=== PATIENT | female | born 1990 | race Caucasian/White ===

== ENCOUNTER 2017-11-12 04:48 | Emergency (ER) | payer BC ==
[~2017-11-12] VITALS: Ht 170.2 cm; Wt 68.0 kg
[2017-11-12 04:53] VITALS: BP 157/82
[2017-11-12] MEDS ORDERED: LEVO25TA4 PO (05:01)
[2017-11-12] MEDS ORDERED: BUPR150T17 PO (05:01)
[2017-11-12] MEDS ORDERED: GABA300C10 PO (05:01)
[2017-11-12] MEDS ORDERED: DULO60CA7 PO (05:01)
[2017-11-12] MEDS ORDERED: NS 1000ML 1,000 ML ONE (05:08)
[2017-11-12] MEDS ORDERED: NS 1000ML 1,000 ML IV STA (05:09)
[2017-11-12] MEDS ORDERED: ZOFRAN ONE (05:09)
[2017-11-12] MEDS ORDERED: ZOFRAN IV STA ×2 (05:09→05:24)
[2017-11-12] MEDS ORDERED: DILAUDID IV STA (05:17)
--- NOTE | 2017-11-12 05:17 | ER.PDOC ---
General Chief Complaint: Nausea,Vomiting,Diarrhea Stated Complaint: VOMITING Time seen by MD: 05:11 Source: patient Exam Limitations: no limitations History of Present Illness Initial Comments Upper abdominal pain, Nausea and vomiting. Problem is on going and chronic. Has been worked up including EGD by GI Doctor with no significant finding. Timing/Duration: 4-6 hours Severity/Quality: moderate, sharpness Radiation: no radiation Associated Symptoms: nausea/vomiting Exacerbated by: nothing Relieved By: nothing Allergies: Coded Allergies: metronidazole (Verified Allergy, Unknown, 11/19/16) Home Meds Reported Medications Levothyroxine Sodium (LEVOTHYROXINE SODIUM) 25 Mcg Tablet, 1 TAB PO DAILY, #30 TAB 5 Refills 11/12/17 Duloxetine Hcl (CYMBALTA) 60 Mg Capsule.dr, 1 CAP PO DAILY, #90 CAP 3 Refills 11/12/17 Bupropion Hcl (WELLBUTRIN XL) 150 Mg Tab.er.24h, 1 TAB PO DAILY, #30 TAB 11/12/17 Gabapentin (GABAPENTIN) 300 Mg Capsule, 1 CAP PO TID, #90 CAP 5 Refills 11/12/17 Vital Signs First Vital Signs Date Time Temp Pulse Resp B/P (MAP) Pulse Ox O2 Delivery O2 Flow Rate FiO2 11/12/17 04:53 50 16 99 11/12/17 04:53 97.5 157/82 (107) Room Air Last Vital Signs Date Time Temp Pulse Resp B/P (MAP) Pulse Ox O2 Delivery O2 Flow Rate FiO2 11/12/17 04:53 97.5 57 16 157/82 (107) 100 Room Air Past Medical History Medical History: fibromyalgia, thyroid disease Surgical History: appendectomy LMP (females 10-50): this week Social History Smoking: non-smoker Alcohol Use: occassionally Drug Use: marijuana Constitutional: no symptoms reported EENTM: no symptoms reported Respiratory: no symptoms reported Cardiovascular: no symptoms reported Gastrointestinal: see HPI Genitourinary: no symptoms reported All Other Systems: Reviewed and Negative Physical Exam General Appearance: No Apparent Distress, WD/WN HEENT: PERRL/EOMI, Normal ENT Inspection, TMs Normal, Pharynx Normal Neck: Non-Tender, Full Range of Motion, Supple, Normal Inspection Respiratory: chest non-tender, lungs clear, normal breath sounds, no respiratory distress, no accessory muscle use Cardiovascular: Normal Peripheral Pulses, Regular Rate, Rhythm, No Edema, No Gallop, No JVD, No Murmur 1 - tenderness Gastrointestinal: Normal Bowel Sounds, No Organomegaly, No Pulsatile Mass, Guarding, Tenderness (upper abdomen) Back: Normal Inspection, No CVA Tenderness, No Vertebral Tenderness Extremities: Normal Range of Motion, Non-Tender, Normal Inspection, No Pedal Edema, No Calf Tenderness, Normal Capillary Refill, Pelvis Stable Neurologic/Psychiatric: 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 Feels better with Zofran. EKG/XRAY/CT/US CT Comments: See full report of CT abdomen/pelvis Course Blood Pressure Systolic: 157 Blood Pressure Diastolic: 82 Blood Pressure Mean: 107 Departure Time of Disposition: 06:37 Disposition: 01 HOME, SELF-CARE Impression: Primary Impression: Nausea & vomiting Additional Impressions: Chronic abdominal pain Constipation Condition: Improved Referrals: Burton ALVARADO (PCP) PRIMARY CARE PROVIDER Additional Instructions: Zofran ODT Start feeding with clear liquids and advance diet as tolerated Magnesium Citrate OTC as directed F/U with your PCP in 2-3 days Duration or Time Spent with Pa: 90 mins Problem Qualifiers Primary Impression: Nausea & vomiting Vomiting type: unspecified Vomiting Intractability: intractable Qualified Codes: R11.2 - Nausea with vomiting, unspecified Additional Impressions: Constipation Constipation type: unspecified constipation type Qualified Codes: K59.00 - Constipation, unspecified SEBASTIAN SNYDER MD Nov 12, 2017 05:17
[2017-11-12] MEDS ORDERED: ZOFRAN ODT ONE ×2 (05:24→06:53)
[2017-11-12] MEDS ORDERED: ZOFRAN ODT SL STA (05:28)
[2017-11-12] MEDS ORDERED: ZOFRAN IM STA (05:34)
[2017-11-12] MEDS ORDERED: DILAUDID IM STA (05:34)
[2017-11-12] MEDS ORDERED: DILAUDID ONE (05:34)
--- NOTE | 2017-11-12 05:35 | NUR ---
iv attempt Iv attempted x 4 without success , EDP notified , new orders received
[2017-11-12 05:42] LABS: BASOPHIL % 0.3 % (0.0-0.2); EOSINOPHIL # 0.2 10^3/uL (0.0-0.2); EOSINOPHIL % 2.2 % (0.0-5.0); HEMOGLOBIN 13.3 g/dL (12.0-15.0); LYMPHOCYTES # 2.8 10^3/uL (1.0-4.8); LYMPHOCYTES % 25.8 % (24.0-44.0); MEAN CELL HGB 29.6 pg (26-34); MEAN CELL HGB CONCENTRATION 33.2 g/dL (33-37); MEAN CORP VOLUME 89.3 fL (78-100); MEAN PLATELET VOLUME 10.8 fL (7.8-11.0); MONOCYTES # 0.7 10^3/uL (0.3-0.8); MONOCYTES % 6.4 % (5.0-12.0); NEUTROPHILS % 65.2 % (41.0-85.0); RED CELL DISTRIBUTION WIDTH 13.3 % (11.5-14.5); WHITE BLOOD CELL 10.7 10^3/uL (4.5-11.0)
--- NOTE | 2017-11-12 05:50 | NUR ---
CT PATIENT TO CT
[2017-11-12 05:59] LABS: CALCIUM 9.1 mg/dL (8.4-10.5); CARBON DIOXIDE 22.4 mmol/L (20.0-32)
[2017-11-12 06:00] VITALS: BP 142/80
--- NOTE | 2017-11-12 06:00 | NUR ---
RETURN TO ROOM PATIENT RETURNED TO ROOM FROM CT
--- NOTE | 2017-11-12 06:08 | DIREP ---
PROCEDURE:CT ABDOMEN/PELVIS W/O CONTRAST COMPARISON:[facility], CT, CT ABD/PELVIS W/ CONTRAST, 12/13/2016, 11:34 AM. INDICATIONS:upper abdominal pain TECHNIQUE:Axial images were created through the abdomen and pelvis without intravenous contrast material. No oral contrast was administered. Sagittal and coronal reconstructions were performed from source images. The study was reviewed on abdominal, lung, liver and bone windows. FINDINGS: LUNG BASES:Normal. No visible pulmonary or pleural disease. LIVER:Normal. No significant liver lesions are identified. BILIARY:Normal. No visible dilatation or calcification. No calcified gallstones are seen. PANCREAS:Normal. No lesion, fluid collection, ductal dilatation, or atrophy. SPLEEN:Normal. No enlargement or focal lesion. ADRENALS:Normal. No mass or enlargement. URINARY TRACT:A small 3 mm inferior pole right renal stone noted. No hydronephrosis. The stone is best identified on image number 52, series 2. AORTA/VASCULAR:Normal. No aneurysm. RETROPERITONEUM:Normal. No mass or adenopathy. BOWEL/MESENTERY:Normal. There is no intestinal obstruction, free fluid, free air or mesenteric inflammatory changes. Significant retained fecal material in the colon. The appendix is not visualized. The the appendix is presumed to be surgically absent. No free air or free fluid is seen. ABDOMINAL WALL:Normal. No mass or hernia. PELVIC ORGANS:Mild cystic enlargement of both the adnexa, which is worse since the last study. The the right adnexa measures 6 x 4 cm in size in the left adnexa measures 6 x 6.2 cm in size. A follow-up pelvic sonogram is recommended. Phleboliths in the pelvis. BONES:Normal for age. No bony lesion or acute fracture. OTHER:Negative. CONCLUSION:Worsening and cystic enlargement of both the adnexa, recommend a follow-up pelvic sonogram. A 3 mm right renal stone without hydronephrosis. Severe constipation. Suspect a previous appendectomy. No free air or free fluid is seen. Dictated by: Emmanuel Ferrer MD on 11/12/2017 at 06:03 AM
[2017-11-12 06:45] VITALS: BP 132/80
[2017-11-12 07:01] VITALS: BP 132/80
== END 2017-11-12 06:54 | disposition home or self-care (01) ==
LOC: ER 04:48
DX: K59.00 Constipation, unspecified (principal); R11.2 Nausea with vomiting, unspecified; F12.10 Cannabis abuse, uncomplicated; E07.9 Disorder of thyroid, unspecified; M79.7 Fibromyalgia; Z88.8 Allergy status to other drugs, medicaments and biological substances; Z79.899 Other long term (current) drug therapy
CPT/HCPCS: 36415; 74176; 80053; 83690; 84703; 85025; 96372 ×2; 99285; J1170; J2405; J7030; Q0162 ×2

== ENCOUNTER 2018-02-06 08:02 | Emergency (ER) | payer BC ==
[~2018-02-06] VITALS: Ht 170.2 cm; Wt 59.0 kg
[2018-02-06] VITALS (8 sets, daily range): BP systolic 107–135; BP diastolic 58–82
[~2018-02-06 08:02] MED LIST: BUPR150T17 PO; DULO60CA7 PO; GABA300C10 PO; LEVO25TA4 PO
--- NOTE | 2018-02-06 08:07 | NUR ---
ARRIVAL PT ARRIVED AMBULATORY TO ER 4 C/O RIGHT LOWER QUADRANT AND BACK PAIN. PT STATES HAS BILATERAL OVARIAN CYSTS, HAD ULTRASOUND LAST WEEK AND FOLLOW UP WITH DR VELAZQUEZ ON TUESDAY. EDP NOTIFIED OF PT ARRIVAL.
[2018-02-06] MEDS ORDERED: ZOFRAN IV STA ×2 (08:31→10:06)
[2018-02-06] MEDS ORDERED: TORADOL IV STA (08:31)
[2018-02-06] MEDS ORDERED: ZOFRAN ONE ×2 (08:38→10:15)
[2018-02-06] MEDS ORDERED: TORADOL ONE (08:38)
--- NOTE | 2018-02-06 08:39 | ER.PDOC ---
General Chief Complaint: Abdomen Pain Stated Complaint: LOWER ABDOMINAL PAIN Time seen by MD: 08:20 Source: patient Exam Limitations: no limitations History of Present Illness Initial Comments Pt started with RLQ abdominal pain, nausea and vomiting earlier this morning. Pt has a history of PCOS, but, pain appears different to previous occasions. Pain is located mainly on right paraumbilical area Timing/Duration: 1-3 hours Severity/Quality: moderate Radiation: RLQ, flank (right) Associated Symptoms: nausea/vomiting Exacerbated by: nothing Relieved By: nothing Allergies: Coded Allergies: hydrocodone (Verified Allergy, Unknown, Nausea, 02/06/18) metronidazole (Verified Allergy, Unknown, 11/19/16) Home Meds Reported Medications Levothyroxine Sodium (LEVOTHYROXINE SODIUM) 25 Mcg Tablet, 1 TAB PO DAILY, #30 TAB 5 Refills 11/12/17 Duloxetine Hcl (CYMBALTA) 60 Mg Capsule.dr, 1 CAP PO DAILY, #90 CAP 3 Refills 11/12/17 Bupropion Hcl (WELLBUTRIN XL) 150 Mg Tab.er.24h, 1 TAB PO DAILY, #30 TAB 11/12/17 Gabapentin (GABAPENTIN) 300 Mg Capsule, 1 CAP PO TID, #90 CAP 5 Refills 11/12/17 Vital Signs First Vital Signs Date Time Temp Pulse Resp B/P (MAP) Pulse Ox O2 Delivery O2 Flow Rate FiO2 02/06/18 08:16 98.4 75 17 98 Room Air 02/06/18 08:19 133/73 (93) Last Vital Signs Date Time Temp Pulse Resp B/P (MAP) Pulse Ox O2 Delivery O2 Flow Rate FiO2 02/06/18 08:19 98.4 75 17 133/73 (93) 98 Room Air Past Medical History Medical History: fibromyalgia, thyroid disease Surgical History: appendectomy, other LMP (females 10-50): last week Social History Alcohol Use: none Drug Use: marijuana Constitutional: no symptoms reported EENTM: no symptoms reported Respiratory: no symptoms reported Cardiovascular: no symptoms reported Gastrointestinal: see HPI, abdominal pain, nausea, poor appetite, vomiting Genitourinary: flank pain (right) Musculoskeletal: no symptoms reported Skin: no symptoms reported Psychiatric/Neurological: no symptoms reported Endocrine: no symptoms reported Hematologic/Lymphatic: no symptoms reported Physical Exam General Appearance: No Apparent Distress, WD/WN HEENT: PERRL/EOMI, Normal ENT Inspection, TMs Normal, Pharynx Normal Neck: Non-Tender, Full Range of Motion, Supple, Normal Inspection Respiratory: chest non-tender, lungs clear, normal breath sounds, no respiratory distress, no accessory muscle use Cardiovascular: Normal Peripheral Pulses, Regular Rate, Rhythm, No Edema, No Gallop, No JVD, No Murmur Gastrointestinal: Tenderness (right paraumbilical area and RLQ) Back: CVA Tenderness (R) Extremities: Normal Range of Motion, Non-Tender, Normal Inspection, No Pedal Edema, No Calf Tenderness, Normal Capillary Refill, Pelvis Stable Neurologic/Psychiatric: 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 as Tested, No Motor/Sensory Deficits, Alert, Normal Mood/Affect, Oriented x 3 Skin: Normal Color, Warm/Dry Lymphatic: No Adenopathy EKG/XRAY/CT/US CT Comments: right sided pyelonephritis Course TIME SEEN BY PROVIDER: 09:51 Duration or Total Time Spent w: 20 Vitals & review Data Vital Sign - Last 24 Hours 02/06/18 02/06/18 08:16 08:19 Temp 98.4 98.4 Pulse 75 75 Resp 17 17 B/P (MAP) 133/73 (93) Pulse Ox 98 98 O2 Delivery Room Air Room Air Departure Time of Disposition: 09:51 Disposition: 01 HOME, SELF-CARE Impression: Primary Impression: UTI (urinary tract infection) Additional Impression: Pyelonephritis Condition: Stable Patient Instructions: Pyelonephritis, Adult, [id number] Referrals: Burton ALVARADO (PCP) PRIMARY CARE PROVIDER Duration or Time Spent with Pa: 20 Problem Qualifiers LACI RICK MD February 06, 2018 08:39
[2018-02-06] MEDS ORDERED: NS 1000ML 1,000 ML ONE ×2 (08:41→10:15)
[2018-02-06 08:44] LABS: BILIRUBIN,URINE NEGATIVE (NEGATIVE); UROBILINOGEN,URINE NORMAL (NEGATIVE)
[2018-02-06 08:49] LABS: BASOPHIL % 0.4 % (0.0-0.2); EOSINOPHIL # 0.4 10^3/uL (0.0-0.2); HEMOGLOBIN 11.1 g/dL (12.0-15.0); LYMPHOCYTES # 2.6 10^3/uL (1.0-4.8); MEAN CELL HGB 31.6 pg (26-34); MEAN CELL HGB CONCENTRATION 32.9 g/dL (33-37); MEAN PLATELET VOLUME 10.9 fL (7.8-11.0); MONOCYTES % 9.7 % (5.0-12.0); NEUTROPHIL # 6.3 10^3/uL (1.8-7.7); NEUTROPHILS % 60.7 % (41.0-85.0); RED CELL DISTRIBUTION WIDTH 14.5 % (11.5-14.5); WHITE BLOOD CELL 10.4 10^3/uL (4.5-11.0)
--- NOTE | 2018-02-06 08:52 | NUR ---
CT PT TAKEN CT
[2018-02-06 08:59] LABS: APPEARANCE,URINE SLIGHTLY CLOUDY (CLEAR); UA COLOR STRAW (YELLOW)
--- NOTE | 2018-02-06 08:59 | NUR ---
CT PT BACK FROM CT
[2018-02-06] MEDS ORDERED: NS 1000ML 1,000 ML IV ONE ×2 (09:00→10:00)
[2018-02-06 09:03] LABS: CALCIUM 8.5 mg/dL (8.4-10.5); CARBON DIOXIDE 25.3 mmol/L (20.0-32)
--- NOTE | 2018-02-06 09:13 | DIREP ---
PROCEDURE:CT ABDOMEN/PELVIS W/ CONTRAST COMPARISON:[facility], CT, CT ABD/PELVIS W/O, 11/12/2017, 05:46 AM. [facility], CT, CT ABD/PELVIS W/ CONTRAST, 12/13/2016, 11:34 AM. INDICATIONS:RLQ pain x 2 hrs, hx ovarian cysts TECHNIQUE:Axial images were created through the abdomen and pelvis with non-ionic intravenous contrast material. No oral contrast was administered. Sagittal and coronal reconstructions were performed from source images. FINDINGS: LUNG BASES:No suspicious airspace consolidation or pleural effusion. LIVER:No suspicious focal hepatic lesion. BILIARY:The gallbladder is nondistended. No radiopaque calculi. No significant intrahepatic or extrahepatic biliary ductal dilatation. PANCREAS:No suspicious pancreatic abnormality. SPLEEN:The spleen is not significantly enlarged. No focal splenic lesion identified. ADRENALS:The adrenal glands are unremarkable. URINARY TRACT:Subtle delayed right nephrogram. There is mild fullness of the right renal pelvis and right ureter with apparent subtle urothelial enhancement of the right ureter. Subtle right perinephric fat stranding with apparent perinephric fluid. No definite urinary calculi identified. Unremarkable left kidney. AORTA/VASCULAR:No aneurysmal dilatation. RETROPERITONEUM:No suspicious retroperitoneal lymphadenopathy. BOWEL/MESENTERY:No evidence for small bowel obstruction. Moderate fecal burden. The colon appears otherwise grossly unremarkable. Nonvisualization of the appendix which may be surgically absent as there are apparent postsurgical changes near the base of the cecum. No free air. ABDOMINAL WALL:No significant hernia. PELVIC ORGANS:Urinary bladder is nondistended, limiting evaluation. Mild perivesicular fat stranding. The uterus is not enlarged for the patient's age. There is an approximate 5.7 cm cyst within the left adnexal region which is fairly similar to the previous study. Apparent small cysts and/or prominent follicles within the right ovary. No significant free fluid within the pelvis. BONES:No acute abnormality. CONCLUSION: 1. Subtle delayed right nephrogram with mild right perinephric fluid and fat stranding. Fullness of the right renal pelvis and right ureter with apparent subtle urothelial enhancement. No definite urinary calculi identified. Findings are highly suspicious for right-sided pyelonephritis, particularly as there does appear to be perivesicular stranding about the urinary bladder, suggesting associated lower urinary tract infection. Please correlate with urinalysis. 2. Moderate fecal burden within the proximal colon. Suspect prior appendectomy. 3. Dominant left ovarian cyst with additional smaller cysts and/or prominent follicles within the right ovary. 4. Additional findings as above. Dictated by: Milan Carranza M.D. On 02/06/2018 at 09:02 AM
--- NOTE | 2018-02-06 09:40 | NUR ---
STATUS PT RESTING QUIETLY IN BED AT THIS TIME. AT BEDSIDE.
[2018-02-06] MEDS ORDERED: LEVAQUIN 150 ML IV ONE ×2 (10:00→10:15)
--- NOTE | 2018-02-06 10:17 | NUR ---
STATUS PT VOMITED AT THIS TIME. BASIN PROVIDED FOR PT. PT SITTING UPRIGHT IN BED.
[2018-02-06] MEDS ORDERED: PHENERGAN IV STA (10:55)
[2018-02-06] MEDS ORDERED: PHENERGAN ONE (10:57)
--- NOTE | 2018-02-06 11:05 | NUR ---
STATUS PT VOMITING AT THIS TIME. BASIN PROVIDED TO PATIENT. PT SITTING UP IN BED.
--- NOTE | 2018-02-06 11:20 | NUR ---
STATUS PT RESTING IN BED QUIETLY. AT BEDSIDE. NO NEEDS VOICED.
[2018-02-06] MEDS ORDERED: NUBAIN IV STA (12:37)
[2018-02-06] MEDS ORDERED: THORAZINE IM STA (12:37)
[2018-02-06] MEDS ORDERED: THORAZINE ONE (12:47)
[2018-02-06] MEDS ORDERED: DEMEROL ONE (12:50)
--- NOTE | 2018-02-06 12:57 | NUR ---
STATUS PT VOMITING AT THIS TIME. BASIN PROVIDED. PT SITTING UP IN BED. EDP NOTIFIED.
[2018-02-06] MEDS ORDERED: DEMEROL IV STA (13:01)
--- NOTE | 2018-02-06 13:24 | NUR ---
STATUS PT RESTING QUIETLY IN BED. NO NEEDS VOICED. AT BEDSIDE.
== END 2018-02-06 13:48 | disposition home or self-care (01) ==
LOC: ER 08:02
DX: N39.0 Urinary tract infection, site not specified (principal); N12 Tubulo-interstitial nephritis, not specified as acute or chronic; E07.9 Disorder of thyroid, unspecified; M79.7 Fibromyalgia; F12.10 Cannabis abuse, uncomplicated; Z87.42 Personal history of other diseases of the female genital tract; Z88.5 Allergy status to narcotic agent; Z90.49 Acquired absence of other specified parts of digestive tract
CPT/HCPCS: 36415; 74177; 80053; 81000; 81025; 82150; 83690; 85025; 85610; 85730; 87086; 99285; J1885; J1956; J2175; J2405 ×2; J2550; J3230; J7030 ×2; Q9965

== ENCOUNTER 2018-11-09 18:30 | Emergency (ER) | payer BC ==
[~2018-11-09] VITALS: Ht 170.2 cm; Wt 73.2 kg
[2018-11-09 18:34] VITALS: BP 134/86
--- NOTE | 2018-11-09 18:46 | ER.PDOC ---
General Chief Complaint: General Complaint Stated Complaint: COUGH,CONGESTION Time seen by MD: 19:00 Source: patient Exam Limitations: no limitations History of Present Illness Timing/Duration: yesterday Severity: mild Associated Symptoms: fever/chills, sore throat, hoarseness, cough, chest pain Prior symptoms/Treatment: Similar symptoms previous Allergies: Coded Allergies: hydrocodone (Verified Allergy, Unknown, Nausea, 02/06/18) metronidazole (Verified Allergy, Unknown, 11/19/16) Home Meds Reported Medications Fluoxetine Hcl (PROZAC) 20 Mg Capsule, 1 CAP PO DAILY, #30 CAP 1 Refill 11/09/18 Methylphenidate Hcl (RITALIN) 5 Mg Tablet, 1 TAB PO BID, #60 TAB 11/09/18 Clonazepam (KLONOPIN) 0.5 Mg Tablet, 1 TAB PO TID, #90 TAB 11/09/18 Gabapentin (GABAPENTIN) 300 Mg Capsule, 1 CAP PO TID, #90 CAP 5 Refills 11/12/17 Discontinued Reported Medications Levothyroxine Sodium (LEVOTHYROXINE SODIUM) 25 Mcg Tablet, 1 TAB PO DAILY, #30 TAB 5 Refills 11/12/17 Duloxetine Hcl (CYMBALTA) 60 Mg Capsule.dr, 1 CAP PO DAILY, #90 CAP 3 Refills 11/12/17 Bupropion Hcl (WELLBUTRIN XL) 150 Mg Tab.er.24h, 1 TAB PO DAILY, #30 TAB 11/12/17 Constitutional: no symptoms reported EENTM: no symptoms reported All Other Systems: Reviewed and Negative Past Medical History Medical History: fibromyalgia, thyroid disease Surgical History: appendectomy, other LMP (females 10-50): 3 weeks Family History Significant Family History: no pertinent family hx Social History Smoking: non-smoker, other Alcohol Use: none Drug Use: none Reviewed Nursing Reviewed: Vital Signs, Abn. Noted Physical Exam General Appearance: alert, no distress Eye: eyes nml inspection, lids & conjunct. nml, PERRL, no nystagmus Ear: ear nml Nose: rhinorrhea Throat: pharynx nml, airway nml Neck: nml inspection, supple Respiratory: no resp.distress, breath sounds nml Abdomen: non-tender, no organomegaly CVS: reg rate & rhythm, heart sounds nml Skin: color nml, no rash, warm/dry Extremities: non-tender, nml ROM, no pedal edema NEURO/PSYCH: oriented x 3, CN's nml as tested, motor nml, sensation nml, mood/ affect nml Results/Orders Results/Orders Laboratory Tests Test 11/09/18 19:10 Urine Collection Type CCMS Urine Color YELLOW (YELLOW) Urine Appearance CLOUDY (CLEAR) Urine Bilirubin NEGATIVE MG/DL (NEGATIVE) Urine Ketones NEGATIVE (NEGATIVE) Urine Specific [place] 1.015 (1.005-1.035) Urine pH 6 (5.0-6.0) Urine Protein NEGATIVE (NEGATIVE) Urine Urobilinogen NORMAL (NEGATIVE) Urine Nitrate POSITIVE (NEGATIVE) Urine Leukocyte Esterase 25 /uL TRACE (NEGATIVE) Urine Blood NEGATIVE (NEGATIVE) Urine RBC 0-2 RBC/HPF (NONE SEEN) Urine WBC 5-10 WBC/HPF (0-2) Urine Squamous Epithelial Cells RARE #/HPF (FEW) Urine Bacteria MANY (NONE SEEN) Urine Glucose NORMAL (NEGATIVE) Influenza Type A Antigen NEGATIVE (NEG) Influenza B Immunofluorescence NEGATIVE (NEG) Group A Streptococcus Screen NEGATIVE (NEGATIVE) Progress Progress DR GARCIA Departure Time of Disposition: 18:55 Disposition: 01 HOME, SELF-CARE Impression: Primary Impression: UTI (urinary tract infection) Additional Impressions: URI (upper respiratory infection) Bronchitis Condition: Stable Referrals: Burton ALVARADO (PCP) PRIMARY CARE PROVIDER Duration or Time Spent with Pa: 10 Problem Qualifiers ADIS METCALF MD Nov 09, 2018 18:46 MARTHA GARCIA MD Nov 09, 2018 19:46
[2018-11-09] MEDS ORDERED: METH5TAB4 PO (18:49)
[2018-11-09] MEDS ORDERED: FLUO20CA19 PO (18:49)
[2018-11-09] MEDS ORDERED: CLON0.5T PO (18:49)
[2018-11-09 19:20] LABS: BILIRUBIN,URINE NEGATIVE (NEGATIVE); UROBILINOGEN,URINE NORMAL (NEGATIVE)
[2018-11-09 19:24] LABS: STREP SCREEN NEGATIVE (NEGATIVE)
[2018-11-09 19:30] VITALS: BP 118/72
[2018-11-09 19:36] LABS: APPEARANCE,URINE CLOUDY (CLEAR); UA COLOR YELLOW (YELLOW)
[2018-11-09 19:58] VITALS: BP 118/72
== END 2018-11-09 19:56 | disposition home or self-care (01) ==
LOC: ER 18:30
DX: N39.0 Urinary tract infection, site not specified (principal); J06.9 Acute upper respiratory infection, unspecified; J40 Bronchitis, not specified as acute or chronic; E07.9 Disorder of thyroid, unspecified; M79.7 Fibromyalgia; Z79.899 Other long term (current) drug therapy; Z88.1 Allergy status to other antibiotic agents; Z88.5 Allergy status to narcotic agent
CPT/HCPCS: 81000; 87070; 87077; 87086; 87186; 87804; 87880; 99285

== ENCOUNTER 2020-10-10 20:40 | Emergency (ER) | payer BC, OTHER ==
[~2020-10-10] VITALS: Ht 170.2 cm; Wt 68.0 kg
[~2020-10-10 20:40] MED LIST changes: +CLON0.5T PO; +FLUO20CA19 PO; +METH5TAB4 PO
[2020-10-10 20:56] VITALS: BP 139/89
[2020-10-10 21:44] LABS: APPEARANCE,URINE CLOUDY (CLEAR); BILIRUBIN,URINE NEGATIVE (NEGATIVE); UA COLOR YELLOW (YELLOW); UROBILINOGEN,URINE 0.2 (NEGATIVE)
[2020-10-10 21:46] VITALS: BP 121/68
--- NOTE | 2020-10-10 21:46 | ER.PDOC ---
General Chief Complaint: Abdomen Pain Stated Complaint: ABD PAIN Time seen by MD: 21:38 Source: patient Exam Limitations: no limitations History of Present Illness Initial Comments Left pelvic pain today, patient old me that she is 9 weeks . She did a home test. No vaginal bleeding. Severity/Quality: moderate Location of Pain: abdominal pain LMP (females 10-50): : 1 Para: 0 Test: home Care: none Sexual [place] History: single partner Associated Symptoms: abdominal pain Allergies: Coded Allergies: hydrocodone (Verified Allergy, Unknown, Nausea, 02/06/18) metronidazole (Verified Allergy, Unknown, 11/19/16) Home Meds Reported Medications Fluoxetine Hcl (PROZAC) 20 Mg Capsule, 1 CAP PO DAILY, #30 CAP 1 Refill 11/09/18 Methylphenidate Hcl (RITALIN) 5 Mg Tablet, 1 TAB PO BID, #60 TAB 11/09/18 Clonazepam (KLONOPIN) 0.5 Mg Tablet, 1 TAB PO TID, #90 TAB 11/09/18 Gabapentin (GABAPENTIN) 300 Mg Capsule, 1 CAP PO TID, #90 CAP 5 Refills 11/12/17 Past Medical History Medical History: fibromyalgia, thyroid disease, other Surgical History: other Family History Significant Family History: no pertinent family hx Social History Alcohol Use: none Drug Use: none Review of Systems Constitutional: no symptoms reported EENTM: no symptoms reported Respiratory: no symptoms reported Cardiovascular: no symptoms reported Gastrointestinal: see HPI Genitourinary: see HPI Musculoskeletal: no symptoms reported All Other Systems: Reviewed and Negative Physical Exam General Appearance: No Apparent Distress, WD/WN Neck: nml inspection, non-tender Cardiovascular/Respiratory: Regular Rate, Rhythm, No M/R/G, Normal Peripheral Pulses, No JVD, Normal Breath Sounds, No Respiratory Distress 1 - tenderness Abdomen: Normal Bowel Sounds, Non Tender, No Organomegaly, No Pulsatile Mass, Tenderness (mild left lower abdominal/pelvis tenderness) Extremities: Normal Range of Motion, Non-Tender, Normal Inspection, No Pedal Edema, No Calf Tenderness, Normal Capillary Refill Neurologic/Psychiatric: 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 (10/10/20 21:44) Us Tv-Ob (10/10/20 21:44) Hcg, Quantitative (10/10/20 21:44) Us Preg Before 14 Wks (10/10/20 21:49) Vital Signs Date Time Temp Pulse Resp B/P (MAP) Pulse Ox O2 Delivery O2 Flow Rate FiO2 10/10/20 23:24 98.2 83 18 123/82 (96) 98 Room Air 10/10/20 21:46 98.2 81 18 121/68 (85) 98 Room Air 10/10/20 20:56 98.2 117 18 139/89 (106) 99 Room Air 10/10/20 20:56 98.2 117 18 10/10/20 20:56 98.2 117 18 99 Laboratory Tests Test 10/10/20 20:54 10/10/20 21:56 Urine Collection Type VOID Urine Color YELLOW (YELLOW) Urine Appearance CLOUDY (CLEAR) H Urine Bilirubin NEGATIVE MG/DL (NEGATIVE) Urine Ketones TRACE (NEGATIVE) Urine Specific [place] 1.020 (1.005-1.035) Urine pH 7.0 (5.0-6.0) Urine Protein NEGATIVE (NEGATIVE) Urine Urobilinogen 0.2 (NEGATIVE) Urine Nitrate NEGATIVE (NEGATIVE) Urine Leukocyte Esterase SMALL (NEGATIVE) Urine Blood NEGATIVE (NEGATIVE) Urine RBC NONE SEEN RBC/HPF (NONE Urine WBC 2-5 WBC/HPF (0-2) Urine Squamous Epithelial Cells FEW #/HPF (FEW) Urine Amorphous Sediment LARGE (NONE SEEN) Urine Bacteria FEW (NONE SEEN) H Urine Glucose NEGATIVE (NEGATIVE) Urine HCG, Qualitative POSITIVE (NEGATIVE) White Blood Count 10.2 10^3/uL (4.5-11.0) Red Blood Count 4.28 10^6/uL (4.00-5.20) Hemoglobin 13.1 g/dL (12.0-15.0) Hematocrit 37.3 % (36.0-46.0) Mean Corpuscular Volume 87.1 fL (78-100) Mean Corpuscular Hemoglobin 30.6 pg (26-34) Mean Corpuscular Hemoglobin Concent 35.1 g/dL (33-36.5) Red Cell Distribution Width 14.1 % (11.5-14.5) Platelet Count 210 10^3/uL (150-400) Mean Platelet Volume 9.3 fL (7.8-11.0) Neutrophils (%) (Auto) 71.1 % (41.0-85.0) Lymphocytes (%) (Auto) 20.0 % (24.0-44.0) L Monocytes (%) (Auto) 7.0 % (5.0-12.0) Neutrophils # (Auto) 7.2 10^3/uL (1.8-7.7) Lymphocytes # (Auto) 2.03 10^3/uL1 (1.0-4.8) Monocytes # (Auto) 0.7 10^3/uL (0.3-0.8) Absolute Immature Granulocyte (auto 0.02 10^3 u/L (0-2) Absolute Eosinophils (auto) 0.1 10^3/uL (0.0-0.2) Immature Granulocytes % 0.20 % (0.00-0.50) Eosinophils % 1.3 % (0.0-5.0) Basophils % 0.4 % (0.0-0.2) H Basophils # 0.0 10^3/uL (0.0-0.1) Prothrombin Time 9.9 SEC (9.3-11.3) Prothrombin Time INR (Non-Therap) 1.0 Activated Partial Thromboplast Time 23.5 SEC (24.67-30.72) Sodium Level 137 mmol/L (132-145) # Potassium Level 3.6 mmol/L (3.6-5.2) Chloride Level 101.0 mmol/L (96-109) Carbon Dioxide Level 25.7 mmol/L (20.0-32) Anion Gap 13.9 Blood Urea Nitrogen 11 mg/dL (7-18) Creatinine 0.84 mg/dL (0.59-1.40) Estimated GFR () 95.1 (>/=60) Est GFR (CKD-EPI)(Non-Afr Singaporean) 78.6 (>/=60) BUN/Creatinine Ratio 13.0 Glucose Level 96 mg/dL (70-110) Calcium Level 9.6 mg/dL (8.4-10.5) Total Bilirubin 0.3 mg/dL (0.2-1.0) Aspartate Amino Transferase (AST) 14 U/L (0-35) Alanine Aminotransferase (ALT) 15 U/L (12-78) Alkaline Phosphatase 51 U/L (50-136) Total Protein 6.9 g/dL (6.4-8.2) Albumin 3.5 g/dL (3.4-5.0) Globulin 3.4 Albumin/Globulin Ratio 1.029 Human Chorionic Gonadotropin, Quant [id number] mIU/mL Progress Progress OB US: Intrauterine gestation dating approximately 9 weeks 1 day by ultrasound criteria. Active heart tones. Patient told me that her pain resolved while she is here. She is currently pin free. ER DEPART Departure Time of Disposition: 23:32 Disposition: 01 HOME, SELF-CARE Impression: Primary Impression: Abdominal pain during in first trimester Additional Impression: UTI (urinary tract infection) Condition: Improved Referrals: PCP,UNKNOWN (PCP) PRIMARY CARE PROVIDER Additional Instructions: Macrobid F/U with your OB Provider in 2-3 days Return to ED if worsening or concerns Duration or Time Spent with Pa: 60 min Problem Qualifiers Additional Impression: UTI (urinary tract infection) Urinary tract infection type: site unspecified Hematuria presence: without hematuria Qualified Codes: N39.0 - Urinary tract infection, site not specified SEBASTIAN SNYDER MD Oct 10, 2020 21:46
--- NOTE | 2020-10-10 21:58 | NUR ---
US PT TO US WITH YANNI AT THIS TIME VIA WHEELCHAIR.
[2020-10-10 22:02] LABS: BASOPHIL % 0.4 % (0.0-0.2); EOSINOPHIL # 0.1 10^3/uL (0.0-0.2); EOSINOPHIL % 1.3 % (0.0-5.0); LYMPHOCYTES # 2.03 10^3/uL1 (1.0-4.8); MEAN CORP HGB 30.6 pg (26-34); MONOCYTES # 0.7 10^3/uL (0.3-0.8); NEUTROPHIL # 7.2 10^3/uL (1.8-7.7); NEUTROPHILS % 71.1 % (41.0-85.0); PLATELET COUNT 210 10^3/uL (150-400); RED CELL DISTRIBUTION WIDTH 14.1 % (11.5-14.5)
[2020-10-10 22:16] LABS: CALCIUM 9.6 mg/dL (8.4-10.5); CARBON DIOXIDE 25.7 mmol/L (20.0-32)
--- NOTE | 2020-10-10 23:07 | DIREP ---
PROCEDURE:US OB 1ST TRI - TV COMPARISON:None. INDICATIONS:LEFT PELVIC PAIN, Hx Ov Cyst, Hx PCOS,Cystectomy 2005, 2011,2013 TECHNIQUE:Transabdominal and endovaginal pelvic ultrasound images were obtained. Endovaginal images were obtained to optimally evaluate the and maternal adnexal structures. FINDINGS: GESTATIONAL SAC:Present and normal appearing. POLE:<<Present and normal appearing. CRL = 2.4 cm, corresponding to an EGA of 9 weeks 1 day . YOLK SAC:<<Present.>> CARDIAC ACTIVITY:<<Present. 172 bpm.>> UTERUS:Normal. OVARIES:Normal in size, shape, and echogenicity. The right measures 4.7 x 2.3 x 3.2 cm. Incidentally noted likely corpus luteum The left measures 3.9 x 2.1 x 2.0 cm. There are no adnexal masses. CUL-DE-SAC:Normal. US SAI:May 14, 2021 OTHER:Survey of the placental anatomic structure and amniotic fluid could not be performed because of gestational age (<14 weeks). CONCLUSION: Intrauterine gestation dating approximately 9 weeks 1 day by ultrasound criteria. Active heart tones. Dictated by: Kapil Borjas DO on 10/10/2020 at 11:04 PM
[2020-10-10 23:24] VITALS: BP 123/82
== END 2020-10-10 23:40 | disposition home or self-care (01) ==
LOC: ER 20:40
DX: O23.41 Unspecified infection of urinary tract in pregnancy, first trimester (principal); O26.891 Other specified pregnancy related conditions, first trimester; O99.281 Endocrine, nutritional and metabolic diseases complicating pregnancy, first trimester; M79.7 Fibromyalgia; E07.9 Disorder of thyroid, unspecified; Z79.899 Other long term (current) drug therapy; Z88.1 Allergy status to other antibiotic agents; Z88.5 Allergy status to narcotic agent; Z3A.09 9 weeks gestation of pregnancy
CPT/HCPCS: 36415; 76801; 76817; 80053; 81000; 81025; 84702; 85025; 85610; 85730; 87086; 99284

== ENCOUNTER 2020-10-23 10:10 | Observation (INO) | payer MEDICAID, OTHER ==
[~2020-10-23] VITALS: Ht 170.2 cm; Wt 68.0 kg
[2020-10-23] MEDS ORDERED: ZOFRAN ONE ×3 (10:44→21:49)
[2020-10-23] MEDS ORDERED: NS 1000ML 1,000 ML ONE ×2 (10:44→13:56)
[2020-10-23 10:50] VITALS: BP 109/80
[2020-10-23] MEDS ORDERED: NS 1000ML 1,000 ML IV STA ×3 (10:52→11:52)
[2020-10-23 10:54] VITALS: BP 109/80
[2020-10-23] MEDS ORDERED: ZOFRAN IV STA ×2 (10:54→11:26)
[2020-10-23] MEDS ORDERED: PHENERGAN IV STA (10:54)
--- NOTE | 2020-10-23 10:54 | NUR ---
ARRIVAL PATIENT ARRIVED TO [facility] AMBULATORY, C/O OF NAUSEA AND VOMITING FOR THE PAST THREE DAYS, PATIENT IS APPROX 10 WEEKS AND HAS NOT BEEN ABLE TO HOLD ANYTHING DOWN, NO CARE YET, CAME TO THE ED FOR EVAL, DOCTOR MAGAÑA TO THE ROOM TO SEE PATIENT.
--- NOTE | 2020-10-23 10:57 | ER.PDOC ---
General Chief Complaint: Requesting Medical Care Stated Complaint: NAUSEA/VOMITING Time seen by MD: 10:50 Source: patient Exam Limitations: no limitations History of Present Illness Initial Comments pt c/o unable to hold anything down x 3 days with palpitations this morning; she is 11 wk Severity/Quality: severe (vomiting, no c/o pain) Associated Symptoms (vomiting): freq vomitng Prior symptoms/Treatment: Similar symptoms previous Allergies: Coded Allergies: hydrocodone (Verified Allergy, Unknown, Nausea, 02/06/18) metronidazole (Verified Allergy, Unknown, 11/19/16) Home Meds Reported Medications Fluoxetine Hcl (PROZAC) 20 Mg Capsule, 1 CAP PO DAILY, #30 CAP 1 Refill 11/09/18 Methylphenidate Hcl (RITALIN) 5 Mg Tablet, 1 TAB PO BID, #60 TAB 11/09/18 Clonazepam (KLONOPIN) 0.5 Mg Tablet, 1 TAB PO TID, #90 TAB 11/09/18 Gabapentin (GABAPENTIN) 300 Mg Capsule, 1 CAP PO TID, #90 CAP 5 Refills 11/12/17 Vital Signs First Vital Signs Date Time Temp Pulse Resp B/P (MAP) Pulse Ox O2 Delivery O2 Flow Rate FiO2 10/23/20 10:50 98.4 58 16 10/23/20 10:50 99 10/23/20 10:50 109/80 (90) Room Air Last Vital Signs Date Time Temp Pulse Resp B/P (MAP) Pulse Ox O2 Delivery O2 Flow Rate FiO2 10/23/20 12:06 98.4 114 16 125/61 (82) 99 Room Air Past Medical History Medical History: fibromyalgia, thyroid disease, other Surgical History: other LMP (females 10-50): (LMP 11; ) Family History Significant Family History: no pertinent family hx Social History Smoking: non-smoker Alcohol Use: none Drug Use: none Constitutional: denies no symptoms reported, denies see HPI, denies chills, denies diaphoresis, denies fever, denies malaise, denies weakness, denies other EENTM: denies no symptoms reported, denies see HPI, denies eye pain, denies blurred vision, denies tearing, denies double vision, denies ear pain, denies ear discharge, denies nose pain, denies nose congestion, denies throat pain, denies throat swelling, denies mouth pain, denies mouth swelling, denies other Respiratory: denies no symptoms reported, denies see HPI, denies cough, denies orthopnea, denies shortness of breath, denies SOB with exertion, denies SOB at rest, denies stridor, denies wheezing, denies other Cardiovascular: denies no symptoms reported, denies see HPI, denies chest pain, denies edema, denies irregular heart rate, denies lightheadedness; palpitations (onset this morning); denies syncope, denies other Gastrointestinal: nausea, vomiting Genitourinary: denies no symptoms reported, denies see HPI, denies burning, denies dysuria, denies discharge, denies frequency, denies flank pain, denies hematuria, denies incontinence, denies pain, denies urgency, denies other Musculoskeletal: denies no symptoms reported, denies see HPI, denies back pain, denies gout, denies joint pain, denies joint swelling, denies muscle pain, denies muscle stiffness, denies neck pain, denies other Skin: denies no symptoms reported, denies see HPI, denies change in color, denies change in hair/nails, denies dryness, denies lesions, denies lumps, denies rash, denies other Psychiatric/Neurological: denies no symptoms reported, denies see HPI, denies anxiety, denies depressed, denies emotional problems, denies headache, denies numbness, denies paresthesia, denies pre-existing deficit, denies seizure, denies tingling, denies tremors, denies weakness, denies other All Other Systems: Reviewed and Negative Physical Exam General Appearance: No Apparent Distress, Thin HEENT: PERRL/EOMI, Normal ENT Inspection, TMs Normal, Pharynx Normal Neck: Non-Tender, Full Range of Motion, Supple, Normal Inspection Respiratory: lungs clear, normal breath sounds, no respiratory distress, no accessory muscle use Cardiovascular: Regular Rate, Rhythm, No Murmur Gastrointestinal: Normal Bowel Sounds, Non Tender Extremities: Non-Tender, Normal Inspection, No Pedal Edema, No Calf Tenderness Neurologic/Psychiatric: Alert, Normal Mood/Affect, Oriented x 3 Skin: Normal Color, Warm/Dry Results/Orders Results/Orders Orders - MAGAÑA,HUBER O DO 0.9 % Sodium Chloride (Ns 1000ml) (10/23/20 10:44) Ondansetron Hcl/Pf (Zofran) (10/23/20 10:44) Cbc With Auto Diff (10/23/20 10:52) Comprehensive Metabolic Panel (10/23/20 10:52) Amylase (10/23/20 10:52) Lipase (10/23/20 10:52) PT (10/23/20 10:52) Partial Thromboplastin Time. (10/23/20 10:52) Urinalysis (10/23/20 10:52) Saline Lock (10/23/20 10:52) 0.9 % Sodium Chloride (Ns 1000ml) (10/23/20 10:52) Ondansetron Hcl/Pf (Zofran) (10/23/20 10:54) 0.9 % Sodium Chloride (Ns 1000ml) (10/23/20 10:54) Ondansetron Hcl/Pf (Zofran) (10/23/20 11:26) Urine Culture (10/23/20 10:30) Ceftriaxone Sodium (Rocephin) (10/23/20 11:43) Ceftriaxone Sodium (Rocephin) (10/23/20 11:45) Prochlorperazine Edisylate (Compazine) (10/23/20 11:52) Diphenhydramine Hcl (Benadryl) (10/23/20 11:52) 0.9 % Sodium Chloride (Ns 1000ml) (10/23/20 11:52) Diphenhydramine Hcl (Benadryl) (10/23/20 11:53) Prochlorperazine Edisylate (Compazine) (10/23/20 11:54) Gastric Occ Bld (Gastrocult) (10/23/20 12:06) Admit Orders (10/23/20 12:14) Vital Signs Date Time Temp Pulse Resp B/P (MAP) Pulse Ox O2 Delivery O2 Flow Rate FiO2 10/23/20 12:06 98.4 114 16 125/61 (82) 99 Room Air 10/23/20 10:54 98.4 58 16 109/80 (90) 99 Room Air 10/23/20 10:50 98.4 58 16 109/80 (90) 99 Room Air 10/23/20 10:50 98.4 58 16 99 10/23/20 10:50 98.4 58 16 Administered Medications Medications (Trade) Dose Ordered Sig/Bakari Route PRN Reason Start Time Stop Time Status Last Admin Dose Admin Ceftriaxone Sodium 1000 mg/ Sodium Chloride 100 ml @ 100 mls/hr STAT STAT IV 10/23/20 11:43 10/23/20 12:42 DC 10/23/20 11:47 100 MLS/HR Diphenhydramine HCl (Benadryl) 50 mg STAT STAT IV 10/23/20 11:52 10/23/20 11:54 DC 10/23/20 12:05 50 MG Ondansetron HCl (Zofran) 4 mg STAT STAT IV 10/23/20 10:54 10/23/20 13:21 DC 10/23/20 10:56 4 MG Ondansetron HCl (Zofran) 4 mg STAT STAT IV 10/23/20 11:26 10/23/20 11:27 DC 10/23/20 11:29 4 MG Prochlorperazine Edisylate (Compazine) 10 mg STAT STAT IV 10/23/20 11:52 10/23/20 11:54 DC 10/23/20 12:04 10 MG Sodium Chloride 1,000 ml @ 1,200 mls/hr Q50M STAT IV 10/23/20 10:52 10/23/20 13:20 DC 10/23/20 10:56 1,200 MLS/HR Sodium Chloride 1,000 ml @ 1,200 mls/hr Q50M STAT IV 10/23/20 10:54 10/23/20 13:21 DC 10/23/20 12:04 1,200 MLS/HR Sodium Chloride 1,000 ml @ 1,200 mls/hr Q50M STAT IV 10/23/20 11:52 10/23/20 12:41 DC 10/23/20 12:06 1,200 MLS/HR Laboratory Tests Test 10/23/20 10:47 10/23/20 12:00 White Blood Count 15.6 10^3/uL (4.5-11.0) H Red Blood Count 4.58 10^6/uL (4.00-5.20) Hemoglobin 14.0 g/dL (12.0-15.0) Hematocrit 39.4 % (36.0-46.0) Mean Corpuscular Volume 86.0 fL (78-100) Mean Corpuscular Hemoglobin 30.6 pg (26-34) Mean Corpuscular Hemoglobin Concent 35.5 g/dL (33-36.5) Red Cell Distribution Width 13.8 % (11.5-14.5) Platelet Count 305 10^3/uL (150-400) Mean Platelet Volume 9.7 fL (7.8-11.0) Neutrophils (%) (Auto) 78.9 % (41.0-85.0) Lymphocytes (%) (Auto) 14.0 % (24.0-44.0) L Monocytes (%) (Auto) 6.7 % (5.0-12.0) Neutrophils # (Auto) 12.3 10^3/uL (1.8-7.7) H Lymphocytes # (Auto) 2.18 10^3/uL1 (1.0-4.8) Monocytes # (Auto) 1.0 10^3/uL (0.3-0.8) H Absolute Immature Granulocyte (auto 0.03 10^3 u/L (0-2) Absolute Eosinophils (auto) 0.0 10^3/uL (0.0-0.2) Immature Granulocytes % 0.20 % (0.00-0.50) Eosinophils % 0.1 % (0.0-5.0) Basophils % 0.1 % (0.0-0.2) Basophils # 0.0 10^3/uL (0.0-0.1) Prothrombin Time 10.7 SEC (9.3-11.3) Prothrombin Time INR (Non-Therap) 1.1 Activated Partial Thromboplast Time 24.7 SEC (24.67-30.72) Urine Collection Type UNKNOWN Urine Color YELLOW (YELLOW) Urine Appearance CLOUDY (CLEAR) H Urine Bilirubin SMALL MG/DL (NEGATIVE) Urine Ictotest NEGATIVE (NEGATIVE) Urine Ketones 40 mg/dL (NEGATIVE) Urine Specific [place] 1.025 (1.005-1.035) Urine pH 6.0 (5.0-6.0) Urine Protein 30 mg/dL (NEGATIVE) H Urine Urobilinogen NORMAL (NEGATIVE) Urine Nitrate NEGATIVE (NEGATIVE) Urine Leukocyte Esterase SMALL (NEGATIVE) Urine Blood NEGATIVE (NEGATIVE) Urine RBC 2-5 RBC/HPF (NONE SEEN) Urine WBC TNTC WBC/HPF (0-2) H Urine Squamous Epithelial Cells MANY #/HPF (FEW) Urine Renal Epithelial Cells RARE #/HPF (NONE SEEN) Urine Bacteria MANY (NONE SEEN) H Urine Fine Granular Casts Urine Coarse Granular Casts 2-5 #/LPF Urine Other CLUE CELLS #/HPF Urine Glucose NORMAL (NEGATIVE) Sodium Level 139 mmol/L (132-145) Potassium Level 2.9 mmol/L (3.6-5.2) L Chloride Level 99.0 mmol/L (96-109) Carbon Dioxide Level 23.9 mmol/L (20.0-32) Anion Gap 19.0 Blood Urea Nitrogen 13 mg/dL (7-18) Creatinine 0.99 mg/dL (0.59-1.40) Estimated GFR () 78.7 (>/=60) Est GFR (CKD-EPI)(Non-Afr Cameroonian) 65.0 (>/=60) BUN/Creatinine Ratio 13.0 Glucose Level 134 mg/dL (70-110) H Calcium Level 10.2 mg/dL (8.4-10.5) Total Bilirubin 0.6 mg/dL (0.2-1.0) Aspartate Amino Transferase (AST) 16 U/L (0-35) Alanine Aminotransferase (ALT) 24 U/L (12-78) Alkaline Phosphatase 59 U/L (50-136) Total Protein 7.9 g/dL (6.4-8.2) Albumin 4.0 g/dL (3.4-5.0) Globulin 3.9 Albumin/Globulin Ratio 1.025 Amylase Level 71 U/L (25-115) Lipase 85 U/L (114-286) L Gastric Fluid Occult Blood POSITIVE (NEGATIVE) Consult/PCP Time Consult/PCP Called: 12:13 Consult/PCP: Dr. Anahi Perez Reason/Comments: will admit ER DEPART Departure Time of Disposition: 12:14 Disposition: 01 HOME, SELF-CARE Impression: Primary Impression: Hyperemesis gravidarum Condition: Stable Referrals: PCP,UNKNOWN (PCP) PRIMARY CARE PROVIDER Duration or Time Spent with Pa: 30 min HUBER MAGAÑA DO Oct 23, 2020 10:57
[2020-10-23 11:10] LABS: BASOPHIL % 0.1 % (0.0-0.2); EOSINOPHIL % 0.1 % (0.0-5.0); LYMPHOCYTES # 2.18 10^3/uL1 (1.0-4.8); MEAN CORP HGB 30.6 pg (26-34); MONOCYTES % 6.7 % (5.0-12.0); NEUTROPHIL # 12.3 10^3/uL (1.8-7.7); NEUTROPHILS % 78.9 % (41.0-85.0); PLATELET COUNT 305 10^3/uL (150-400); RED CELL DISTRIBUTION WIDTH 13.8 % (11.5-14.5)
[2020-10-23 11:29] LABS: CALCIUM 10.2 mg/dL (8.4-10.5); CARBON DIOXIDE 23.9 mmol/L (20.0-32)
[2020-10-23 11:32] LABS: APPEARANCE,URINE CLOUDY (CLEAR); BILIRUBIN,URINE SMALL MG/DL (NEGATIVE); UA COLOR YELLOW (YELLOW)
[2020-10-23 11:34] LABS: UROBILINOGEN,URINE NORMAL (NEGATIVE)
[2020-10-23] MEDS ORDERED: ROCEPHIN 1,000 MG in NS 100ML 100 ML IV STA (11:43)
[2020-10-23] MEDS ORDERED: ROCEPHIN ONE (11:45)
[2020-10-23] MEDS ORDERED: COMPAZINE IV STA (11:52)
[2020-10-23] MEDS ORDERED: BENADRYL IV STA (11:52)
[2020-10-23] MEDS ORDERED: BENADRYL ONE (11:53)
[2020-10-23] MEDS ORDERED: COMPAZINE ONE (11:54)
[2020-10-23 12:06] VITALS: BP 125/61
--- NOTE | 2020-10-23 12:14 | NUR ---
SERGIO MAGAÑA ON THE PHONE WITH OBGYN DOCTOR SERGIO, WILL ADMIT PATIENT.
[2020-10-23 13:00] VITALS: BP 112/66
--- NOTE | 2020-10-23 13:15 | NUR ---
Rec'd from ER by wheelchair accompanied by Burton Victoria RN. Report rec'd. Pt states she is nauseated. Awake, alert, oriented.
--- NOTE | 2020-10-23 13:39 | PCM.HP ---
HISTORY & PHYSICAL HISTORY & PHYSICAL DATE OF ADMISSION: 10/23/20 CHIEF COMPLAINT: vomiting HISTORY OF PRESENT ILLNESS: 30 year old G1 with LMP of 08/05/21 (EDC 05/12/21) at 11 2/7 weeks who presents to [facility] ER with 4 days of intractable N/V (~30 x/days, streaks of blood). Normal BM 4 days ago. Tolerated apple sauce 4 days ago. No sick contacts. + anxiety (? cause of her N/V or visa-versa). No dysuria, + strong-smelling/concentrated/dark urine, no cloudy urine. No current hunger/thirst. No VB, no F/C. Found out at 5 weeks. Morning sickness spells before this. PAST MEDICAL HISTORY: hypothyroidism, PCOS, endometriosis, fibromyalgia SURGICAL HISTORY: bilater ov cystectomy, appendectomy (not ruptured) CURRENT MEDICATIONS: Neurontin, Clonidine, Fluoxetine, Methylphenidate ALLERGIES: Flagyl (nausea - side effect), Hydrocodone (nausea - side effect) FAMILY HISTORY: no CA/HTN/DM/CVD SOCIAL HISTORY: no E/T/D, no STD Hx REVIEW OF SYSTEMS: CONST:No fever, fatigue, or weight changes. EYES: No recent vision problems. ENT: No congestion, ear pain, or sore throat. C/V: No chest pain, palpitations, or edema. RESP: No cough, congestion, wheezing or shortness of breath. GI: No constipation, or diarrhea. : No incontinence or dysuria. M/S: No joint pain or swelling. SKIN: No rash. NEURO: No headache, focal numbness or weakness, dizziness, or seizures. PSYCH: No depression. ENDO: No polyuria or polydipsia. HEME: No abnormal bruising or bleeding. LYMPH: No swollen glands. IMMUN: No itching or hives. PHYSICAL EXAM: VITALS: Vital Signs Date Time Temp Pulse Resp B/P (MAP) Pulse Ox O2 Delivery O2 Flow Rate FiO2 10/23/20 13:00 98.4 77 16 112/66 (81) 99 Room Air Allergies Coded Allergies hydrocodone (Verified Allergy, Unknown, Nausea, 02/06/18) metronidazole (Verified Allergy, Unknown, 11/19/16) Current Medications Medications (Trade) Dose Ordered Sig/Bakari Route Start Time Stop Time Status Last Admin Dose Admin Sodium Chloride 1,000 ml @ 1,200 mls/hr Q50M STAT IV 10/23/20 10:52 10/23/20 13:20 DC 10/23/20 10:56 1,200 MLS/HR Ondansetron HCl (Zofran) 4 mg STAT STAT IV 10/23/20 10:54 10/23/20 13:21 DC 10/23/20 10:56 4 MG Sodium Chloride 1,000 ml @ 1,200 mls/hr Q50M STAT IV 10/23/20 10:54 10/23/20 13:21 DC 10/23/20 12:04 1,200 MLS/HR Ondansetron HCl (Zofran) 4 mg STAT STAT IV 10/23/20 11:26 10/23/20 11:27 DC 10/23/20 11:29 4 MG Ceftriaxone Sodium 1000 mg/ Sodium Chloride 100 ml @ 100 mls/hr STAT STAT IV 10/23/20 11:43 10/23/20 12:42 DC 10/23/20 11:47 100 MLS/HR Prochlorperazine Edisylate (Compazine) 10 mg STAT STAT IV 10/23/20 11:52 10/23/20 11:54 DC 10/23/20 12:04 10 MG Diphenhydramine HCl (Benadryl) 50 mg STAT STAT IV 10/23/20 11:52 10/23/20 11:54 DC 10/23/20 12:05 50 MG Sodium Chloride 1,000 ml @ 1,200 mls/hr Q50M STAT IV 10/23/20 11:52 10/23/20 12:41 DC 10/23/20 12:06 1,200 MLS/HR GENERAL: right lateral decubitus in the position, slow speech, very tired, no respiratory distress, able to answer/respond appropriately HEAD: Normal with no signs of head trauma. ENT: Hearing grossly intact, normal oropharynx. NECK: Supple, no tenderness, no lymphadenopathy, no masses, no thyromegaly LUNGS: Clear breath sounds. Heart: Reg rate. ABD: Bowel sounds normal, soft, nontender, no masses, no organomegaly, LYMPH: No lymphadenopathy noted. : not done EXT: Intact x 4 SKIN: No rashes or lesions. NEURO: Alert and oriented x3. Normal affect. 10/10/20: TV U/S: UTERUS:Normal. OVARIES:Normal in size, shape, and echogenicity. The right measures 4.7 x 2.3 x 3.2 cm. Incidentally noted likely corpus luteum The left measures 3.9 x 2.1 x 2.0 cm. There are no adnexal masses. CUL-DE-SAC:Normal. US SAI:May 14, 2021 OTHER:Survey of the placental anatomic structure and amniotic fluid could not be performed because of gestational age (<14 weeks). CONCLUSION: Intrauterine gestation dating approximately 9 weeks 1 day by ultrasound criteria. Active heart tones. Laboratory Tests Test 10/23/20 10:47 10/23/20 12:00 White Blood Count 15.6 10^3/uL (4.5-11.0) Red Blood Count 4.58 10^6/uL (4.00-5.20) Hemoglobin 14.0 g/dL (12.0-15.0) Hematocrit 39.4 % (36.0-46.0) Mean Corpuscular Volume 86.0 fL (78-100) Mean Corpuscular Hemoglobin 30.6 pg (26-34) Mean Corpuscular Hemoglobin Concent 35.5 g/dL (33-36.5) Red Cell Distribution Width 13.8 % (11.5-14.5) Platelet Count 305 10^3/uL (150-400) Mean Platelet Volume 9.7 fL (7.8-11.0) Neutrophils (%) (Auto) 78.9 % (41.0-85.0) Lymphocytes (%) (Auto) 14.0 % (24.0-44.0) Monocytes (%) (Auto) 6.7 % (5.0-12.0) Neutrophils # (Auto) 12.3 10^3/uL (1.8-7.7) Lymphocytes # (Auto) 2.18 10^3/uL1 (1.0-4.8) Monocytes # (Auto) 1.0 10^3/uL (0.3-0.8) Absolute Immature Granulocyte (auto 0.03 10^3 u/L (0-2) Absolute Eosinophils (auto) 0.0 10^3/uL (0.0-0.2) Immature Granulocytes % 0.20 % (0.00-0.50) Eosinophils % 0.1 % (0.0-5.0) Basophils % 0.1 % (0.0-0.2) Basophils # 0.0 10^3/uL (0.0-0.1) Prothrombin Time 10.7 SEC (9.3-11.3) Prothrombin Time INR (Non-Therap) 1.1 Activated Partial Thromboplast Time 24.7 SEC (24.67-30.72) Urine Collection Type UNKNOWN Urine Color YELLOW (YELLOW) Urine Appearance CLOUDY (CLEAR) Urine Bilirubin SMALL MG/DL (NEGATIVE) Urine Ictotest NEGATIVE (NEGATIVE) Urine Ketones 40 mg/dL (NEGATIVE) Urine Specific [place] 1.025 (1.005-1.035) Urine pH 6.0 (5.0-6.0) Urine Protein 30 mg/dL (NEGATIVE) Urine Urobilinogen NORMAL (NEGATIVE) Urine Nitrate NEGATIVE (NEGATIVE) Urine Leukocyte Esterase SMALL (NEGATIVE) Urine Blood NEGATIVE (NEGATIVE) Urine RBC 2-5 RBC/HPF (NONE SEEN) Urine WBC TNTC WBC/HPF (0-2) Urine Squamous Epithelial Cells MANY #/HPF (FEW) Urine Renal Epithelial Cells RARE #/HPF (NONE SEEN) Urine Bacteria MANY (NONE SEEN) Urine Fine Granular Casts Urine Coarse Granular Casts 2-5 #/LPF Urine Other CLUE CELLS #/HPF Urine Glucose NORMAL (NEGATIVE) Sodium Level 139 mmol/L (132-145) Potassium Level 2.9 mmol/L (3.6-5.2) Chloride Level 99.0 mmol/L (96-109) Carbon Dioxide Level 23.9 mmol/L (20.0-32) Anion Gap 19.0 Blood Urea Nitrogen 13 mg/dL (7-18) Creatinine 0.99 mg/dL (0.59-1.40) Estimated GFR () 78.7 (>/=60) Est GFR (CKD-EPI)(Non-Afr Guyanese) 65.0 (>/=60) BUN/Creatinine Ratio 13.0 Glucose Level 134 mg/dL (70-110) Calcium Level 10.2 mg/dL (8.4-10.5) Total Bilirubin 0.6 mg/dL (0.2-1.0) Aspartate Amino Transf (AST/SGOT) 16 U/L (0-35) Alanine Aminotransferase (ALT/SGPT) 24 U/L (12-78) Alkaline Phosphatase 59 U/L (50-136) Total Protein 7.9 g/dL (6.4-8.2) Albumin 4.0 g/dL (3.4-5.0) Globulin 3.9 Albumin/Globulin Ratio 1.025 Amylase Level 71 U/L (25-115) Lipase 85 U/L (114-286) Gastric Fluid Occult Blood POSITIVE (NEGATIVE) ASSESSMENT: Hyperemesis gravidarum w/ hypokalemia, no evidence of bowel obstruction/pancreatitis/pyelonephritis/liver dysfunction, ? component of anxiety PLAN: Admit for 23 hour obs, IV hydration, anti-emetic, replete Potassium, consider anxiolytics. Discussed this plan with the patient. All questions answered. She verbalized good understanding. SHAMAR HILL MD Oct 23, 2020 13:39
[2020-10-23] MEDS: PEPCID IV SCH ×2 (13:52→20:37)
--- NOTE | 2020-10-23 13:52 | NUR ---
Dr Perez in to see patient and discuss plan of care. Pepcid 20 mg IVP given. Pt had a 100 cc watery emesis.
[2020-10-23] MEDS: ZOFRAN IV SCH ×2 (13:58→21:49)
[2020-10-23 14:00] VITALS: BP 125/76
[2020-10-23] MEDS ORDERED: D5LR 1000ML/KCL 40MEQ 1,000 ML IV ONE (14:00)
--- NOTE | 2020-10-23 14:00 | NUR ---
ZOfran 8 mg IVP given as instructed by physician at this time. Rationale, effects, and side-effects of pepcid and zofran explained to pt and she voiced understanding.
[2020-10-23] MEDS ORDERED: LACTATED RINGERS 1,000 ML ONE ×3 (14:04→16:43)
[2020-10-23] MEDS: LACTATED RINGERS IV SCH ×3 (14:05→16:53)
--- NOTE | 2020-10-23 14:05 | NUR ---
Pt had NS infusing when she arrived to floor in a #20 gauge IV in her left hand which is patent, intact, and free of s/s of infiltration or infection. Up 2000 cc LR @ 1020 cc/hr per physicians order.
[2020-10-23] MEDS: ATIVAN IV PRN ×2 (14:28→20:39)
--- NOTE | 2020-10-23 14:28 | NUR ---
Ativan 1 mg given IV push per physician order. Rationale, effects, and side-effects explained to pt and she voiced understanding.
--- NOTE | 2020-10-23 15:25 | NUR ---
Sleeping soundly on right lateral. Resps even and non-labored. SO @ bedside and reports pt has been sleeping since her ativan.
--- NOTE | 2020-10-23 16:53 | NUR ---
Up 1000 cc D5LR with 40 meq kcl @ 100 cc/hr on pump #2, along with LR @ 100 cc/hr on pump #1 per order. Pt sleeping soundly and wakes momentarily when nurse adjusts IV. Declines needs and goes back to sleep.
--- NOTE | 2020-10-23 17:45 | NUR ---
Sleeping; wakes easily when nurse enters room. Declines needs. Goes back to sleep.
[2020-10-23] MEDS ORDERED: PHENERGAN IV SCH (18:00)
[2020-10-23] MEDS: REGLAN IV SCH (18:14)
--- NOTE | 2020-10-23 18:15 | NUR ---
Pt sleeping soundly, wakes easily when nurse enters room. IV reglan given as scheduled. Pt denies pain or N/V. Asked pt if she needs to empty her bladder and she stated "no" and went back to sleep. PO hydration at bedside. IV pumps cleared.
[2020-10-23 20:21] VITALS: BP 104/58
--- NOTE | 2020-10-23 20:21 | NUR ---
Assessment Patient sleeping upon nurse entry, but woke easily when nurse made presence known. Assessment performed. Patient rated pain at a 7 on a scale of 0-10. Patient stated that she has gone to the bathroom since shift change. Patient states she still feels a "little nauseous, but not like before." Patient requested a little bit of "something hot. My throat is just really scratchy and I need something to soothe it." Nurse stated she would find something that would be suitable. Patient denies further needs.
[2020-10-23] MEDS ORDERED: ATIVAN ONE (20:29)
[2020-10-23] MEDS ORDERED: TYLENOL ONE (20:29)
[2020-10-23] MEDS ORDERED: PEPCID IV ONE (20:30)
[2020-10-23] MEDS: TYLENOL PO PRN (20:38)
--- NOTE | 2020-10-23 20:39 | NUR ---
Medications Pepsid given IV at 2036. Tylenol 650 mg (325 mg/tab x2 tabs) given at 2037. Ativan 1mg given IV per patient's request at 2038. 30 mL hot chicken broth brought to patient to soothe throat. Patient sipped slowly and said it started helping her throat. Patient educated on medications, purposes, and side effects. Patient verbalizes understanding, denies needs at this time.
--- NOTE | 2020-10-23 21:28 | NUR ---
Reassessment Patient sleeping, respirations even and unlabored, no signs of stress noted. Patient left undisturbed for uninterrupted rest.
--- NOTE | 2020-10-23 21:49 | NUR ---
Medication Zofran 8mg given IV per scheduled order. Patient educated on Zofran, medication, purpose, and side effects. Patient verbalizes understanding, denies needs at this time.
[2020-10-24] MEDS: REGLAN IV SCH ×4 (00:18→17:43)
--- NOTE | 2020-10-24 00:18 | NUR ---
Medication Patient educated on Reglan, medication, purpose, and side effects. Patient verbalizes understanding, denies questions. Reglan given IV per order. Patient denies needs at this time.
[2020-10-24 00:23] VITALS: BP 117/54
--- NOTE | 2020-10-24 00:23 | NUR ---
VS VS obtained. Patient sleeping upon nurse entry, but woke after nurse made presence known. Patient states she has "bad nausea." Patient denies needs at this time.
[2020-10-24] MEDS ORDERED: ATIVAN ONE ×4 (01:46→22:26)
[2020-10-24] MEDS: ATIVAN IV PRN ×4 (01:49→22:32)
--- NOTE | 2020-10-24 01:49 | NUR ---
Medication Patient requesting ativan at this time. Patient educated on ativan, medication, purpose, and side effects. Patient verbalizes understanding, denies needs at this time.
[2020-10-24] MEDS ORDERED: LACTATED RINGERS 1,000 ML ONE ×3 (02:49→12:50)
[2020-10-24] MEDS: LACTATED RINGERS IV SCH ×3 (02:53→13:11)
--- NOTE | 2020-10-24 02:53 | NUR ---
New IV bag New bag of LR hung, infusing at 100ml/hr per order. LR with K still infusing at 100ml/hr per order. Patient sleeping, respirations even and unlabored, no signs of stress noted. Patient left undisturbed for uninterrupted rest.
--- NOTE | 2020-10-24 03:14 | NUR ---
Infusion complete Infusion of LR with potassium completed. 852.6 mL cleared from pump. LR infusion rate increased to 200mL/hr per order. Patient sleeping, respirations even and unlabored, no signs of stress noted. Patient left undisturbed for uninterrupted rest.
--- NOTE | 2020-10-24 04:03 | NUR ---
Status Patient sleeping, respirations even and unlabored, no signs of stress noted. Patient left undisturbed for uninterrupted rest.
[2020-10-24] MEDS ORDERED: ZOFRAN ONE ×4 (05:52→22:25)
[2020-10-24] MEDS: ZOFRAN IV SCH ×3 (05:56→22:31)
[2020-10-24 06:00] VITALS: BP 110/56
--- NOTE | 2020-10-24 06:00 | NUR ---
VS and Medication Patient sleeping but woke easily when nurse made presence known. Respirations even and unlabored, no signs of stress noted. Reglan given IV per order at 0555, Zofran given IV per order at 0556. 100mL clear emesis noted in emesis basin. 400mL clear urine emptied from collection hat. Patient denies needs at this time.
--- NOTE | 2020-10-24 06:45 | NUR ---
Medication Patient requesting Ativan. States "I know I'm saying I need it a lot, but it's the only thing keeping me calm." Ativan given IV per order. Patient denies needs at this time
--- NOTE | 2020-10-24 06:49 | NUR ---
Report Report given to oncoming shift. Transfer of care at this time.
--- NOTE | 2020-10-24 07:40 | PRM.PN ---
PROGRESS NOTE S/O/A/P DATE: 10/24/20 S: No improvement in her N/V (per pt, vomited ~ 15 times since being on the floor). No bleeding, jose a little water. + void/flatus. No pain/VB. O: VS: [employer] Allergies Coded Allergies hydrocodone (Verified Allergy, Unknown, Nausea, 02/06/18) metronidazole (Verified Allergy, Unknown, 11/19/16) Current Medications Medications (Trade) Dose Ordered Sig/Bakari Route Start Time Stop Time Status Last Admin Dose Admin Sodium Chloride 1,000 ml @ 1,200 mls/hr Q50M STAT IV 10/23/20 10:52 10/23/20 13:20 DC 10/23/20 10:56 1,200 MLS/HR Ondansetron HCl (Zofran) 4 mg STAT STAT IV 10/23/20 10:54 10/23/20 13:21 DC 10/23/20 10:56 4 MG Sodium Chloride 1,000 ml @ 1,200 mls/hr Q50M STAT IV 10/23/20 10:54 10/23/20 13:21 DC 10/23/20 12:04 1,200 MLS/HR Ondansetron HCl (Zofran) 4 mg STAT STAT IV 10/23/20 11:26 10/23/20 11:27 DC 10/23/20 11:29 4 MG Ceftriaxone Sodium 1000 mg/ Sodium Chloride 100 ml @ 100 mls/hr STAT STAT IV 10/23/20 11:43 10/23/20 12:42 DC 10/23/20 11:47 100 MLS/HR Prochlorperazine Edisylate (Compazine) 10 mg STAT STAT IV 10/23/20 11:52 10/23/20 11:54 DC 10/23/20 12:04 10 MG Diphenhydramine HCl (Benadryl) 50 mg STAT STAT IV 10/23/20 11:52 10/23/20 11:54 DC 10/23/20 12:05 50 MG Sodium Chloride 1,000 ml @ 1,200 mls/hr Q50M STAT IV 10/23/20 11:52 10/23/20 12:41 DC 10/23/20 12:06 1,200 MLS/HR Acetaminophen (Tylenol) 650 mg Q4HR PRN PO 10/23/20 13:30 11/22/20 13:29 10/23/20 20:38 650 MG Famotidine (Pepcid) 20 mg BID IV 10/23/20 13:30 11/22/20 13:29 10/23/20 20:37 20 MG Ondansetron HCl (Zofran) 8 mg Q8HR IV 10/23/20 14:00 11/22/20 13:59 10/24/20 05:56 8 MG Metoclopramide HCl (Reglan) 10 mg Q6HR IV 10/23/20 18:00 11/22/20 17:59 10/24/20 05:55 10 MG Lorazepam (Ativan) 1 mg Q2 PRN IV 10/23/20 14:00 11/22/20 13:59 10/24/20 06:45 1 MG Potassium Cl/ Dextrose/Lact Ringer's 1,000 ml @ 100 mls/hr Q10H ONCE IV 10/23/20 14:00 10/23/20 23:59 DC 10/23/20 16:53 100 MLS/HR General: A&O x 4, no respiratory distress, comfortable, speaking/moving slowly Abdomen: soft, non-tender A: HD#2, HG - no improvement. P: Currently on Zofran and Reglan scheduled (patient declined Phenergan). Will add Compazine (no Anzemet, Kytril or Inapsine on formulary), start IV steroids, obtain pancreas and GB ultrasound, recheck Potassium. SHAMAR HILL MD Oct 24, 2020 07:40
[2020-10-24 08:00] VITALS: BP 109/59
--- NOTE | 2020-10-24 08:15 | NUR ---
STATUS PT RESTING QUIETLY IN BED. AWAKENS TO NURSE ENTERING ROOM. REPORTS NAUSEA. DENIES BREAKFAST TRAY. VS AND ASSESSMENT COMPLETED.
--- NOTE | 2020-10-24 08:25 | NUR ---
LAB LAB PRESENT
[2020-10-24 08:42] LABS: CALCIUM 8.2 mg/dL (8.4-10.5); CARBON DIOXIDE 25.3 mmol/L (20.0-32)
[2020-10-24] MEDS ORDERED: COMPAZINE ONE ×5 (09:07→22:25)
[2020-10-24] MEDS ORDERED: PEPCID IV ONE ×2 (09:08→22:27)
[2020-10-24] MEDS: PEPCID IV SCH ×2 (09:12→22:30)
--- NOTE | 2020-10-24 09:12 | NUR ---
MEDS MEDS GIVEN. PT EDUCATED ON MEDS GIVEN, S/E AND PURPOSE OF MEDS. PT VOICED UNDERSTANDING OF MEDS.
[2020-10-24] MEDS: COMPAZINE IV SCH ×4 (09:13→22:30)
--- NOTE | 2020-10-24 10:45 | NUR ---
RESTING RESTING QUIETLY IN BED. RESP UNLABORED.
--- NOTE | 2020-10-24 13:00 | NUR ---
BR PT UP TO BR AND VOIDED 1200CC CL YELLOW. PT REPORTS THIS IF FOR SEVERAL VOIDS.
--- NOTE | 2020-10-24 13:20 | NUR ---
MEDS MEDS GIVEN, PT EDUCATED ON MEDS GIVEN, S/E AND PURPOSE. PT VOICED UNDERSTANDING. PT REPORTS UNABLE TO EAT LUNCH TRAY. CLEAR MUCOUS IN BASIN. 100CC. REPORTS NAUSEA
[2020-10-24] MEDS ORDERED: SOLU-MEDROL ONE ×2 (13:57→22:26)
[2020-10-24] MEDS ORDERED: POTASSIUM CHLORIDE IV ONE (14:00)
[2020-10-24] MEDS ORDERED: NS IV ONE ×2 (14:00→15:00)
[2020-10-24] MEDS: SOLU-MEDROL IV SCH ×2 (14:07→22:31)
--- NOTE | 2020-10-24 14:07 | NUR ---
MEDS MEDS GIVEN. PT EDUCATED ON MEDS GIVEN, PURPOSE AND S/E. PT VOICED UNDERSTANDING. US PRESENT
--- NOTE | 2020-10-24 14:30 | NUR ---
RESTING PT RESTING QUIETLY IN BED. REPORTS NAUSEA.
--- NOTE | 2020-10-24 14:34 | DIREP ---
PROCEDURE:US ABDOMEN LIMITED COMPARISON:None. INDICATIONS:persistent hyperemesis gravidarum FINDINGS: PANCREAS:The imaged pancreas appears grossly unremarkable. Portions of the pancreatic head and tail are partially obscured. LIVER:Unremarkable hepatic echogenicity. GALLBLADDER:There are a few tiny echogenic non shadowing foci within the dependent aspect of the gallbladder, favoring nodular sludge over polyps or non shadowing calculi. There is no gallbladder wall thickening or pericholecystic fluid collections. BILIARY:The common duct measures approximately 3 mm diameter and is within normal limits. RIGHT KIDNEY:The right kidney measures approximately 11.1 x 4.9 x 5.6 cm. No hydronephrosis. OTHER:No significant ascites. CONCLUSION: 1. Small echogenic non shadowing foci along the dependent aspect of the gallbladder would favor nodular sludge over polyps or non shadowing calculi. There are no secondary signs to suggest acute cholecystitis. Normal caliber common duct. Dictated by: Milan Carranza M.D. On 10/24/2020 at 02:30 PM
[2020-10-24] MEDS ORDERED: INFUVITE ADULT IV ONE (15:00)
[2020-10-24] MEDS ORDERED: FOLIC ACID IV ONE (15:00)
[2020-10-24] MEDS ORDERED: THIAMINE HCL IV ONE (15:00)
[2020-10-24 17:40] VITALS: BP 106/50
--- NOTE | 2020-10-24 17:40 | NUR ---
MEDS/VS MEDS GIVEN. PT EDUCATED ON PURPOSE, S/E. PT VOICED UNDERSTANDING.
--- NOTE | 2020-10-24 17:48 | NUR ---
STATUS REPORTS BEING NAUSEATED BUT NO EMESIS
--- NOTE | 2020-10-24 18:02 | NUR ---
STATUS PT SITTING UP IN BED WATCHING TV. REPORTS NAUSEA BUT NO VOMITING. GATORADE AND POPSICLE TAKEN PER PT REQUEST.
--- NOTE | 2020-10-24 18:45 | NUR ---
REPORT REPORT TO ONCOMING SHIFT
--- NOTE | 2020-10-24 19:15 | NUR ---
Report received, assumed care of pt.
--- NOTE | 2020-10-24 20:40 | NUR ---
IV Pt called to nurses station about IV hurting, IV appears infiltrated, site DC'd at this time, tip intact, encouraged pt to keep arm elevated, swelling noted to hand and wrist area.
--- NOTE | 2020-10-24 21:44 | NUR ---
IV IV STARTED X1 ATTEMPT IN RIGHT HAND - 20G - GOOD BLOOD RETURN NOTED. FLUSHES WITHOUT RESISTANCE. INFUSING AT 100ML/HR AT THIS TIME. PATIENT DENIES NEEDS.
[2020-10-24 22:00] VITALS: BP 108/63
[2020-10-24] MEDS ORDERED: TYLENOL ONE (22:25)
--- NOTE | 2020-10-24 22:30 | NUR ---
PM Meds PM meds given at this time. Pt requests PRN ativan to help with sleep/anxiety. Ativan given.
[2020-10-24] MEDS: TYLENOL PO PRN (22:31)
[2020-10-25] MEDS: REGLAN IV SCH ×2 (01:04→06:20)
--- NOTE | 2020-10-25 01:11 | NUR ---
STATUS Pt sleeping without distress, RR even and nonlabored. Will continue to monitor.
[2020-10-25] MEDS ORDERED: COMPAZINE ONE ×2 (02:19→06:11)
[2020-10-25] MEDS: COMPAZINE IV SCH ×2 (02:20→06:19)
--- NOTE | 2020-10-25 02:30 | NUR ---
STATUS Compazine 10mg given IV, pt resting in bed comfortably, no s/s of distress noted, eyes closed, respirations even and nonlabored.
[2020-10-25] MEDS ORDERED: ATIVAN ONE (04:30)
[2020-10-25] MEDS: ATIVAN IV PRN (04:38)
[2020-10-25 04:42] VITALS: BP 100/43
--- NOTE | 2020-10-25 04:44 | NUR ---
STATUS Pt requesting PRN dose of Ativan, states she is starting to get nauseous again. Ativan 1mg given IV at this time. Pt states she is feeling better and feels like she has had a good night, states she thinks she wants to go home today, feels much better than when she came in.
[2020-10-25 05:34] LABS: CALCIUM 8.3 mg/dL (8.4-10.5)
[2020-10-25] MEDS ORDERED: ZOFRAN ONE (06:10)
[2020-10-25] MEDS ORDERED: SOLU-MEDROL ONE (06:11)
[2020-10-25] MEDS: SOLU-MEDROL IV SCH (06:19)
[2020-10-25] MEDS: ZOFRAN IV SCH (06:19)
--- NOTE | 2020-10-25 07:45 | NUR ---
Dr. Ana Perez here to see pt. Discharge instructions given. Pt to follow up in 1-[address] Perez.
--- NOTE | 2020-10-25 08:07 | PRM.PN ---
PROGRESS NOTE S/O/A/P DATE: 10/25/20 S: Marked improvement in her N/V (per pt, vomited ~ 10 times yesterday morning, none after 1500 hours yesterday). No bleeding, jose Gatoraide/water/chick broth. + void/flatus. No pain/VB. O: VS: [employer] Laboratory Tests Test 10/23/20 10:47 10/23/20 12:00 10/24/20 08:24 10/25/20 05:05 White Blood Count 15.6 10^3/uL (4.5-11.0) Red Blood Count 4.58 10^6/uL (4.00-5.20) Hemoglobin 14.0 g/dL (12.0-15.0) Hematocrit 39.4 % (36.0-46.0) Mean Corpuscular Volume 86.0 fL (78-100) Mean Corpuscular Hemoglobin 30.6 pg (26-34) Mean Corpuscular Hemoglobin Concent 35.5 g/dL (33-36.5) Red Cell Distribution Width 13.8 % (11.5-14.5) Platelet Count 305 10^3/uL (150-400) Mean Platelet Volume 9.7 fL (7.8-11.0) Neutrophils (%) (Auto) 78.9 % (41.0-85.0) Lymphocytes (%) (Auto) 14.0 % (24.0-44.0) Monocytes (%) (Auto) 6.7 % (5.0-12.0) Neutrophils # (Auto) 12.3 10^3/uL (1.8-7.7) Lymphocytes # (Auto) 2.18 10^3/uL1 (1.0-4.8) Monocytes # (Auto) 1.0 10^3/uL (0.3-0.8) Absolute Immature Granulocyte (auto 0.03 10^3 u/L (0-2) Absolute Eosinophils (auto) 0.0 10^3/uL (0.0-0.2) Immature Granulocytes % 0.20 % (0.00-0.50) Eosinophils % 0.1 % (0.0-5.0) Basophils % 0.1 % (0.0-0.2) Basophils # 0.0 10^3/uL (0.0-0.1) Prothrombin Time 10.7 SEC (9.3-11.3) Prothrombin Time INR (Non-Therap) 1.1 Activated Partial Thromboplast Time 24.7 SEC (24.67-30.72) Urine Collection Type UNKNOWN Urine Color YELLOW (YELLOW) Urine Appearance CLOUDY (CLEAR) Urine Bilirubin SMALL MG/DL (NEGATIVE) Urine Ictotest NEGATIVE (NEGATIVE) Urine Ketones 40 mg/dL (NEGATIVE) Urine Specific [place] 1.025 (1.005-1.035) Urine pH 6.0 (5.0-6.0) Urine Protein 30 mg/dL (NEGATIVE) Urine Urobilinogen NORMAL (NEGATIVE) Urine Nitrate NEGATIVE (NEGATIVE) Urine Leukocyte Esterase SMALL (NEGATIVE) Urine Blood NEGATIVE (NEGATIVE) Urine RBC 2-5 RBC/HPF (NONE SEEN) Urine WBC TNTC WBC/HPF (0-2) Urine Squamous Epithelial Cells MANY #/HPF (FEW) Urine Renal Epithelial Cells RARE #/HPF (NONE SEEN) Urine Bacteria MANY (NONE SEEN) Urine Fine Granular Casts Urine Coarse Granular Casts 2-5 #/LPF Urine Other CLUE CELLS #/HPF Urine Glucose NORMAL (NEGATIVE) Sodium Level 139 mmol/L (132-145) 138 mmol/L (132-145) 138 mmol/L (132-145) Potassium Level 2.9 mmol/L (3.6-5.2) 2.8 mmol/L (3.6-5.2) 3.5 mmol/L (3.6-5.2) Chloride Level 99.0 mmol/L (96-109) 104.0 mmol/L (96-109) 103.0 mmol/L (96-109) Carbon Dioxide Level 23.9 mmol/L (20.0-32) 25.3 mmol/L (20.0-32) 23.0 mmol/L (20.0-32) Anion Gap 19.0 11.5 15.5 Blood Urea Nitrogen 13 mg/dL (7-18) 5 mg/dL (7-18) 5 mg/dL (7-18) Creatinine 0.99 mg/dL (0.59-1.40) 0.76 mg/dL (0.59-1.40) 0.80 mg/dL (0.59-1.40) Estimated GFR () 78.7 (>/=60) 106.7 (>/=60) 100.6 (>/=60) Est GFR (CKD-EPI)(Non-Afr Czech) 65.0 (>/=60) 88.2 (>/=60) 83.1 (>/=60) BUN/Creatinine Ratio 13.0 6.0 6.0 Glucose Level 134 mg/dL (70-110) 99 mg/dL (70-110) 111 mg/dL (70-110) Calcium Level 10.2 mg/dL (8.4-10.5) 8.2 mg/dL (8.4-10.5) 8.3 mg/dL (8.4-10.5) Total Bilirubin 0.6 mg/dL (0.2-1.0) Aspartate Amino Transf (AST/SGOT) 16 U/L (0-35) Alanine Aminotransferase (ALT/SGPT) 24 U/L (12-78) Alkaline Phosphatase 59 U/L (50-136) Total Protein 7.9 g/dL (6.4-8.2) Albumin 4.0 g/dL (3.4-5.0) Globulin 3.9 Albumin/Globulin Ratio 1.025 Amylase Level 71 U/L (25-115) Lipase 85 U/L (114-286) Gastric Fluid Occult Blood POSITIVE (NEGATIVE) General: A&O x 4, no respiratory distress, comfortable, perked up, more lucid Abdomen: soft, non-tender A: HD#3, HG - resolving. P: Discharge home. Instructions given on how to advance food. To see me in 1- 2 weeks to start PNC. SHAMAR HILL MD Oct 25, 2020 08:07
--- NOTE | 2020-10-25 08:13 | PRM.DC ---
DISCHARGE SUMMARY Y DATE OF ADMISSION: 10/23/20 DATE OF DISCHARGE: 10/25/20 ADMITTING DIAGNOSIS: 1. 30 year old G1 at 11 2/7 weeks with Hyperemesis Gravidarum. 2. Hypothyroidism. 3. PCOS. 4. Endometriosis. 5. Fibromyalgia. 6. Hypokalemia (suspected secondary to #1). DISCHARGE DIAGNOSIS: 1. 30 year old G1 at 11 2/7 weeks with Hyperemesis Gravidarum - resolving. 2. Hypothyroidism. 3. PCOS. 4. Endometriosis. 5. Fibromyalgia. 6. Hypokalemia (suspected secondary to #1). CONSULTS: None PROCEDURES & DATES: None HOSPITAL COURSE: 30 year old G1 at 11 2/7 weeks who was admitted from [facility] ER with hyperemesis gravidarum. She was given lots of IV fluid resuscitation, scheduled Reglan and Zofran (patient declined Phenergan due to side effect), scheduled Pepcid and her hypokalemia repleted. With no improvement on Hospital Day #2, Compazine and Solumedrol were added. On the morning of Hospital Day #3, she has marked improvement in her nausea/vomiting, tolerating po, desires to be discharged. No bleeding/cramping throughout her hospitalization. Her vital signs were stable and afebrile throughout her hospital course. Abdomen: on the day of discharge, her abdomen was soft. MEDICATIONS: Zofran, Reglan, Pepcid. DISPOSITION: Stable to home. PLAN: Follow-Up with me in 1-2 weeks to start care. SHAMAR HILL MD Oct 25, 2020 08:13
--- NOTE | 2020-10-25 08:15 | PRM.DC ---
OB Discharge Summary Discharge Summary Patient History: Patient reports no known family medical history. Assessment & Plan See Discharge Summary note. SHAMAR HILL MD Oct 25, 2020 08:15
[2020-10-25] MEDS ORDERED: METO10TA83 PO (08:18)
[2020-10-25] MEDS ORDERED: FAMO-75 PO (08:18)
[2020-10-25] MEDS ORDERED: ONDA8TAB16 PO (08:18)
[2020-10-25] MEDS: PEPCID IV SCH (09:00)
--- NOTE | 2020-10-25 09:30 | NUR ---
Sleeping Pt continues to sleep. Respirations non labored and skin pink.
[2020-10-25 10:00] VITALS: BP 107/55
--- NOTE | 2020-10-25 10:05 | NUR ---
IV site removed. Tip intact. Bruising at site.
--- NOTE | 2020-10-25 10:20 | NUR ---
Discharge Discharge instructions given verbally with written material. Pt voiced and signed understanding. Denies any questions.
--- NOTE | 2020-10-25 10:30 | NUR ---
Taken down to private auto via wheelchair.
== END 2020-10-25 10:30 | disposition home or self-care (01) ==
LOC: ER 10:10 → LND 12:29
PROVIDERS: ADMIT Obstetrics & Gynecology; ATTEND Obstetrics & Gynecology
DX: O21.1 Hyperemesis gravidarum with metabolic disturbance (principal); O99.281 Endocrine, nutritional and metabolic diseases complicating pregnancy, first trimester; E03.9 Hypothyroidism, unspecified; E28.2 Polycystic ovarian syndrome; O34.81 Maternal care for other abnormalities of pelvic organs, first trimester; N80.9 Endometriosis, unspecified; O99.891 Other specified diseases and conditions complicating pregnancy; M79.7 Fibromyalgia; O99.341 Other mental disorders complicating pregnancy, first trimester; F41.9 Anxiety disorder, unspecified; Z79.899 Other long term (current) drug therapy; Z3A.11 11 weeks gestation of pregnancy
CPT/HCPCS: 36415 ×3; 76705; 80048 ×2; 80053; 81000; 82150; 82271; 83690; 85025; 85610; 85730; 87086; 96361; 96365; 96366 ×4; 96367; 96368; 96375 ×2; 96376 ×3; 99284; G0378 ×43; J0696 ×2; J0780 ×8; J1200; J2060 ×7; J2405 ×9; J2930 ×3; J3480; J3490 ×6; J7030 ×4; J7050 ×2; J7120 ×6; J3411

== ENCOUNTER 2020-10-30 17:05 | Observation (INO) | payer MEDICAID, OTHER ==
[~2020-10-30] VITALS: Ht 170.2 cm; Wt 68.0 kg
[~2020-10-30 17:05] MED LIST changes: +FAMO-75 PO; +METO10TA83 PO; +ONDA8TAB16 PO
[2020-10-30] MEDS ORDERED: NS 1000ML 1,000 ML IV STA (17:14)
[2020-10-30] MEDS ORDERED: ZOFRAN IV STA ×2 (17:14→18:05)
[2020-10-30] MEDS ORDERED: PHENERGAN ONE (17:15)
[2020-10-30] MEDS ORDERED: NS 1000ML 1,000 ML ONE ×2 (17:15→17:20)
[2020-10-30] MEDS ORDERED: ZOFRAN ONE ×2 (17:20→18:05)
[2020-10-30 17:21] VITALS: BP 135/76
--- NOTE | 2020-10-30 17:22 | ER.PDOC ---
General Chief Complaint: Requesting Medical Care Stated Complaint: 12 WEEKS PREG N/V Time seen by MD: 17:20 Source: patient Exam Limitations: no limitations History of Present Illness Initial Comments Patient is 12 weeks complaining of nausea and vomiting since this morning. Patient took Zofran at home but not able to keep it down. She is not tolerating liquids and food. She was admitted last week for hyperemesis gravidarum and she spent about 2 days in the hospital. She denies abdominal pain, fever or chills. Severity/Quality: moderate Associated Symptoms (vomiting): freq vomitng Prior symptoms/Treatment: Similar symptoms previous Allergies: Coded Allergies: hydrocodone (Verified Allergy, Unknown, Nausea, 02/06/18) metronidazole (Verified Allergy, Unknown, 11/19/16) Home Meds Active Scripts Metoclopramide Hcl (REGLAN) 10 Mg Tablet, 10 MG PO QID PRN for N/V for 14 Days, #60 TAB 0 Refills Prov:SHAMAR HILL MD 10/25/20 Famotidine (PEPCID) 20 Mg Tablet, 1 TAB PO BID PRN for heartburn for 30 Days, #60 TAB 0 Refills Prov:SHAMAR HILL MD 10/25/20 Ondansetron (ONDANSETRON ODT) 8 Mg Tab.rapdis, 8 MG PO TID PRN for N/V for 14 Days, #30 TAB 3 Refills Prov:SHAMRA HILL MD 10/25/20 Reported Medications Fluoxetine Hcl (PROZAC) 20 Mg Capsule, 1 CAP PO DAILY, #30 CAP 1 Refill 11/09/18 Methylphenidate Hcl (RITALIN) 5 Mg Tablet, 1 TAB PO BID, #60 TAB 11/09/18 Clonazepam (KLONOPIN) 0.5 Mg Tablet, 1 TAB PO TID, #90 TAB 11/09/18 Gabapentin (GABAPENTIN) 300 Mg Capsule, 1 CAP PO TID, #90 CAP 5 Refills 11/12/17 Vital Signs First Vital Signs Date Time Temp Pulse Resp B/P (MAP) Pulse Ox O2 Delivery O2 Flow Rate FiO2 10/30/20 17:21 98.2 58 22 10/30/20 17:21 98 10/30/20 17:27 135/76 (95) Room Air Last Vital Signs Date Time Temp Pulse Resp B/P (MAP) Pulse Ox O2 Delivery O2 Flow Rate FiO2 10/30/20 18:09 68 20 153/78 (103) 98 Room Air 10/30/20 17:27 98.2 Past Medical History Medical History: fibromyalgia, thyroid disease Surgical History: appendectomy, other Family History Significant Family History: no pertinent family hx Social History Smoking: non-smoker Drug Use: none Constitutional: no symptoms reported Respiratory: no symptoms reported Cardiovascular: no symptoms reported Gastrointestinal: see HPI Genitourinary: no symptoms reported Musculoskeletal: no symptoms reported All Other Systems: Reviewed and Negative Physical Exam General Appearance: No Apparent Distress, WD/WN Neck: Non-Tender, Full Range of Motion, Supple, Normal Inspection Respiratory: chest non-tender, lungs clear, normal breath sounds, no respiratory distress, no accessory muscle use Cardiovascular: Normal Peripheral Pulses, Regular Rate, Rhythm, No Edema, No Gallop, No JVD, No Murmur Gastrointestinal: Normal Bowel Sounds, Non Tender, Soft Back: Normal Inspection, No CVA Tenderness, No Vertebral Tenderness Extremities: Normal Range of Motion, Non-Tender, Normal Inspection, No Pedal Edema, No Calf Tenderness, Normal Capillary Refill, Pelvis Stable Neurologic/Psychiatric: gas blender II-XII NML as Tested, No Motor/Sensory Deficits, Alert, Normal Mood/Affect, Oriented x 3 Skin: Normal Color, Warm/Dry Lymphatic: No Adenopathy Results/Orders Results/Orders Orders - SEBASTIAN SNYDER MD 0.9 % Sodium Chloride (Ns 1000ml) (10/30/20 17:15) Promethazine Hcl (Phenergan) (10/30/20 17:15) Cbc With Auto Diff (10/30/20 17:14) Comprehensive Metabolic Panel (10/30/20 17:14) Lipase (10/30/20 17:14) Urinalysis (10/30/20 17:14) 0.9 % Sodium Chloride (Ns 1000ml) (10/30/20 17:14) Ondansetron Hcl/Pf (Zofran) (10/30/20 17:14) 0.9 % Sodium Chloride (Ns 1000ml) (10/30/20 17:20) Ondansetron Hcl/Pf (Zofran) (10/30/20 17:20) Ondansetron Hcl/Pf (Zofran) (10/30/20 18:05) Ondansetron Hcl/Pf (Zofran) (10/30/20 18:05) Ringer's Solution,Lactated (Lactated Rin (10/30/20 18:29) Vital Signs Date Time Temp Pulse Resp B/P (MAP) Pulse Ox O2 Delivery O2 Flow Rate FiO2 10/30/20 18:09 68 20 153/78 (103) 98 Room Air 10/30/20 17:27 98.2 58 22 135/76 (95) 98 Room Air 10/30/20 17:21 98.2 68 22 98 10/30/20 17:21 98.2 58 22 Administered Medications Medications (Trade) Dose Ordered Sig/Bakari Route PRN Reason Start Time Stop Time Status Last Admin Dose Admin Ondansetron HCl (Zofran) 4 mg STAT STAT IV 10/30/20 17:14 10/30/20 17:20 DC 10/30/20 17:29 4 MG Ondansetron HCl (Zofran) 4 mg STAT STAT IV 10/30/20 18:05 10/30/20 18:06 DC 10/30/20 18:07 4 MG Sodium Chloride 1,000 ml @ 1,200 mls/hr Q50M STAT IV 10/30/20 17:14 10/30/20 18:03 DC 10/30/20 17:29 1,200 MLS/HR Laboratory Tests Test 10/30/20 17:24 White Blood Count 15.5 10^3/uL (4.5-11.0) H Red Blood Count 4.62 10^6/uL (4.00-5.20) Hemoglobin 14.1 g/dL (12.0-15.0) Hematocrit 40.3 % (36.0-46.0) Mean Corpuscular Volume 87.2 fL (78-100) Mean Corpuscular Hemoglobin 30.5 pg (26-34) Mean Corpuscular Hemoglobin Concent 35.0 g/dL (33-36.5) Red Cell Distribution Width 13.9 % (11.5-14.5) Platelet Count 243 10^3/uL (150-400) Mean Platelet Volume 9.7 fL (7.8-11.0) Neutrophils (%) (Auto) 85.8 % (41.0-85.0) H Lymphocytes (%) (Auto) 10.1 % (24.0-44.0) L Monocytes (%) (Auto) 3.3 % (5.0-12.0) L Neutrophils # (Auto) 13.3 10^3/uL (1.8-7.7) H Lymphocytes # (Auto) 1.57 10^3/uL1 (1.0-4.8) Monocytes # (Auto) 0.5 10^3/uL (0.3-0.8) Absolute Immature Granulocyte (auto 0.06 10^3 u/L (0-2) Absolute Eosinophils (auto) 0.0 10^3/uL (0.0-0.2) Immature Granulocytes % 0.40 % (0.00-0.50) Eosinophils % 0.2 % (0.0-5.0) Basophils % 0.2 % (0.0-0.2) Basophils # 0.0 10^3/uL (0.0-0.1) Sodium Level 141 mmol/L (132-145) Potassium Level 3.1 mmol/L (3.6-5.2) L Chloride Level 103.0 mmol/L (96-109) Carbon Dioxide Level 26.1 mmol/L (20.0-32) Anion Gap 15.0 Blood Urea Nitrogen 6 mg/dL (7-18) L Creatinine 0.81 mg/dL (0.59-1.40) Estimated GFR () 99.1 (>/=60) Est GFR (CKD-EPI)(Non-Afr [place]) 81.9 (>/=60) BUN/Creatinine Ratio 7.0 Glucose Level 119 mg/dL (70-110) H Calcium Level 9.3 mg/dL (8.4-10.5) Total Bilirubin 0.3 mg/dL (0.2-1.0) Aspartate Amino Transferase (AST) 13 U/L (0-35) Alanine Aminotransferase (ALT) 29 U/L (12-78) Alkaline Phosphatase 55 U/L (50-136) Total Protein 7.5 g/dL (6.4-8.2) Albumin 3.8 g/dL (3.4-5.0) Globulin 3.7 Albumin/Globulin Ratio 1.027 Lipase 84 U/L (114-286) L Progress Progress Patient continues to throw up despite having a liter of fluid and 8 mg of Zofran. She will be observed in the hospital. ER DEPART Departure Time of Disposition: 18:36 Disposition: 01 HOME, SELF-CARE Impression: Primary Impression: Hyperemesis complicating , antepartum Condition: Stable Referrals: PCP,UNKNOWN (PCP) PRIMARY CARE PROVIDER Comments Admitted to Dr. Chacon Duration or Time Spent with Pa: 30 min SEBASTIAN SNYDER MD Oct 30, 2020 17:22
[2020-10-30 17:27] VITALS: BP 135/76
[2020-10-30 17:28] LABS: BASOPHIL % 0.2 % (0.0-0.2); EOSINOPHIL % 0.2 % (0.0-5.0); LYMPHOCYTES # 1.57 10^3/uL1 (1.0-4.8); LYMPHOCYTES % 10.1 % (24.0-44.0); MEAN CORP HGB 30.5 pg (26-34); MONOCYTES # 0.5 10^3/uL (0.3-0.8); MONOCYTES % 3.3 % (5.0-12.0); NEUTROPHIL # 13.3 10^3/uL (1.8-7.7); NEUTROPHILS % 85.8 % (41.0-85.0); PLATELET COUNT 243 10^3/uL (150-400); RED CELL DISTRIBUTION WIDTH 13.9 % (11.5-14.5)
[2020-10-30 17:45] LABS: CALCIUM 9.3 mg/dL (8.4-10.5); CARBON DIOXIDE 26.1 mmol/L (20.0-32)
[2020-10-30 18:09] VITALS: BP 153/78
[2020-10-30 18:24] VITALS: BP 124/65
[2020-10-30] MEDS ORDERED: LACTATED RINGERS 1,000 ML ONE (18:29)
[2020-10-30] MEDS ORDERED: LACTATED RINGERS 1,000 ML IV STA (18:37)
[2020-10-30 18:41] VITALS: BP 137/78
--- NOTE | 2020-10-30 19:15 | NUR ---
REPORT PT TAKEN TO OB VIA WHEELCHAIR AT THIS TIME. REPORT GIVEN TO SAL Moseley RN.
[2020-10-30] MEDS ORDERED: REGLAN IM STA (19:43)
[2020-10-30] MEDS ORDERED: COMPAZINE RC PRN (20:00)
[2020-10-30] MEDS ORDERED: NS 1000ML 1,000 ML IV SCH (20:30)
[2020-10-30] MEDS ORDERED: REGLAN IM PRN (20:30)
[2020-10-30] MEDS ORDERED: INFUVITE ADULT IV ONE (21:00)
[2020-10-31] MEDS ORDERED: TYLENOL RC PRN
[2020-10-31] MEDS ORDERED: BENADRYL ONE ×2 (00:58→12:29)
[2020-10-31] MEDS: BENADRYL IV PRN ×2 (01:00→12:31)
[2020-10-31 04:13] LABS: UA COLOR YELLOW (YELLOW)
[2020-10-31 04:14] LABS: APPEARANCE,URINE CLOUDY (CLEAR); BILIRUBIN,URINE NEGATIVE (NEGATIVE)
[2020-10-31 04:15] LABS: UROBILINOGEN,URINE 0.2 (NEGATIVE)
[2020-10-31] MEDS ORDERED: LACTATED RINGERS 1,000 ML ONE (04:40)
[2020-10-31] MEDS ORDERED: LACTATED RINGERS 1,000 ML IV SCH (05:30)
[2020-10-31] MEDS ORDERED: REGLAN ONE ×2 (08:46→17:36)
[2020-10-31] MEDS ORDERED: VITAMIN B-6 ONE (08:46)
[2020-10-31] MEDS: REGLAN PO SCH ×2 (08:50→17:37)
--- NOTE | 2020-10-31 08:51 | PCM.HP ---
OB-Chief Complaint and HPI Date/Diagnosis Date: Oct 31, 2020 Time: 08:44 Admit Dx: (1) 12 weeks gestation of ICD Codes: Z3A.12 - 12 weeks gestation of SNOMED: 95339219 (2) Nausea & vomiting ICD Codes: R11.2 - Nausea with vomiting, unspecified SNOMED: 93240714 Status: Acute (3) Marijuana dependence ICD Codes: F12.20 - Cannabis dependence, uncomplicated SNOMED: 84698852 Chief Complaint/History(PI) : 1 Para: 0 EDC: May 12, 2021 Indication for induction: other (Nausea and vomiting) Past Family/Social History Patient History: Patient reports no known family medical history. Blood Type: Unknown Rubella: unknown RPR/VDRL: Unknown GBS Status: Unknown HBsAG: Unknown Provider Note: Patient is a 30-year-old at 12.3 by LMP 08/05/2020 who presented to the emergency room with complaints of N/V. EDC May 12, 2021 consistent with first trimester ultrasound completed 10/10/2019 at [facility] ER. Patient was admitted last week for the same diagnosis. At home patient was taking Zofran, Reglan, Pepcid and vitamins. Started having emesis last night and presented to the emergency room. She was given IV fluids and 8 mg of Zofran without resolution. When she presented to the labor and delivery unit she was given Reglan IM and Benadryl IV to resolve her symptoms. Patient was able to sleep overnight. She describes symptoms of GERD which she felt this morning. She feels her symptoms of GERD exacerbated her emesis this morning. Patient states she has a history of hypothyroidism but has not been on medication for greater than 3 years secondary to not having insurance. She also describes GI symptoms several years prior that caused her to lose a significant amount of weight in a short period of time. No etiology was determined and the symptoms have not returned. Patient denied tobacco, alcohol THC, CBD and illicit drug use. We got a presumptive positive test back for THC. Nursing spoke with patient about this and the patient disclosed to her that she is a heavy marijuana user daily. She was in the hospital last week for nausea and vomiting and has not had her normal usage of marijuana since that time. Patient has not had an office visit. States she was waiting on her Medicaid to go through before she made her first OB office visit. Patient lives at home with her boyfriend. She does not work. He works outside the home. She informs me he is a [employer]. Patient had a temperature overnight, 101.2. Also noted leukocytosis which had increased from last visit. She denies sick contacts. MedicationsZofran, Reglan, Pepcid, vitamins AllergiesFlagyl, rash. Hydrocodoneemesis Surgeryappendectomy, oral surgery, laparoscopic ovarian cystectomy Medicalhypothyroidism (unmedicated x3 years) Family historyskin cancer-MGF, DM2-MGM & PGM A/ 30 y/o @ 12.3 Nausea/vomiting Marijuana use Bacterial Vaginosis Hypokalemia Leukocytosis Elevated Temp x 1 P/ Advance to clears Pepcid IV Stop THC use Banana IV bag Make office appt Thyroid studies-wnl Discussed home OTC options for nausea. Estefany 250 mg QID/tea, Peppermint essential oil,Vitamin B6 10-25 mg daily Alternate Reglan with Benadryl or Unisom. Zofran prn. Continue Pepcid daily OB medication list given COVID testing Plan for d/c to home later today as patient has improved. OB EXAM Physical Exam Vital Signs: Temperature: 98.2, Source: Oral, Respiratory Rate: 20, BP: 137/78, Pulse Oximetry: 51, Weight: 150 Vital Signs Date Time Temp Pulse Resp B/P (MAP) Pulse Ox O2 Delivery O2 Flow Rate FiO2 10/31/20 17:24 57 20 99 Room Air 10/30/20 19:20 0.00 10/30/20 18:41 137/78 (97) 10/30/20 17:27 98.2 GERSON VENTURA DO Oct 31, 2020 08:51
[2020-10-31] MEDS ORDERED: THIAMINE HCL IV SCH (09:00)
[2020-10-31] MEDS ORDERED: VITAMIN B-6 PO SCH (09:00)
[2020-10-31] MEDS ORDERED: NS IV SCH (09:00)
[2020-10-31] MEDS ORDERED: [UNRECOGNIZED DRUG - OTHER] IV SCH (09:00)
[2020-10-31] MEDS ORDERED: PEPCID IV SCH (09:00)
[2020-10-31 17:24] VITALS: BP 113/67
== END 2020-10-31 17:45 | disposition home or self-care (01) ==
LOC: ER 17:05 → LND 18:34
PROVIDERS: ADMIT Obstetrics & Gynecology; ATTEND Obstetrics & Gynecology
DX: O21.1 Hyperemesis gravidarum with metabolic disturbance (principal); Z20.822 Contact with and (suspected) exposure to COVID-19; O99.281 Endocrine, nutritional and metabolic diseases complicating pregnancy, first trimester; E03.9 Hypothyroidism, unspecified; O23.591 Infection of other part of genital tract in pregnancy, first trimester; B96.89 Other specified bacterial agents as the cause of diseases classified elsewhere; O99.321 Drug use complicating pregnancy, first trimester; F12.20 Cannabis dependence, uncomplicated; O99.111 Other diseases of the blood and blood-forming organs and certain disorders involving the immune mechanism complicating pregnancy, first trimester; D72.829 Elevated white blood cell count, unspecified; O99.891 Other specified diseases and conditions complicating pregnancy; M79.7 Fibromyalgia; Z3A.12 12 weeks gestation of pregnancy
CPT/HCPCS: 36415 ×2; 80053; 80307; 80349; 81000; 83690; 84439; 84443; 85025; 87086; 87426; 96361; 96365; 96366; 96372 ×2; 96375 ×2; 96376 ×2; 99284; G0378 ×23; J1200 ×2; J2405 ×2; J2550; J3490; J7030 ×3; J7120 ×2; J8597 ×2; J3411